=== PATIENT | male | born 1965 | race Caucasian/White ===

== ENCOUNTER → 2016-08-09 | Outpatient (CLI) | payer MEDICARE, BC | LOC: OD 16:45 | PROVIDERS: ATTEND Urology | DX: N40.0 Benign prostatic hyperplasia without lower urinary tract symptoms (principal) | CPT/HCPCS: 36415; 84153 ==

== ENCOUNTER 2016-12-12 04:24 | Emergency (ER) | payer MEDICARE, BC ==
[2016-12-12 05:14] LABS: ABSOLUTE BASOPHILS # (AUTO) 0.1 10^3/uL (0.0-0.2); ABSOLUTE EOSINOPHILS # (AUTO) 0.2 10^3/uL (0.0-0.6); ABSOLUTE LYMPHOCYTES (AUTO) 1.5 10^3/uL (0.5-4.7); ABSOLUTE MONOCYTES (AUTO) 0.5 10^3/uL (0.1-1.4); ABSOLUTE NEUT (AUTO) 3.1 10^3/uL (1.7-8.2); BASOPHILS % (AUTO) 1.6 % (0-2); EOSINOPHILS % (AUTO) 3.1 % (0-6); HEMATOCRIT 40.6 % (37.9-51.0); HEMOGLOBIN 13.6 g/dL (13.5-17.0); HGB HCT DIFFERENCE 0.2; LYMPHOCYTES % (AUTO) 27.8 % (13-45); MEAN CORPUSCULAR HEMOGLOBIN 28.1 pg (27.0-33.4); MEAN CORPUSCULAR HGB CONC 33.5 g/dL (32.0-36.0); MEAN CORPUSCULAR VOLUME 84 fl (80-97); MONOCYTES % (AUTO) 9.2 % (3-13); RED BLOOD COUNT 4.84 10^6/uL (4.35-5.55); RED CELL DISTRIBUTION WIDTH 13.3 % (11.5-14.0); SEGMENTED NEUTROPHILS % (AUTO) 58.3 % (42-78); WHITE BLOOD COUNT 5.3 10^3/uL (4.0-10.5)
[2016-12-12 05:41] LABS: ALANINE AMINOTRANSFERASE 34 U/L (21-72); ALBUMIN 3.6 g/dL (3.5-5.0); ALKALINE PHOSPHATASE 62 U/L (38-126); ANION GAP 11 (5-19); ASPARTATE AMINO TRANSFERASE 22 U/L (17-59); BILIRUBIN,DIRECT 0.3 mg/dL (0.0-0.4); BILIRUBIN,TOTAL 0.5 mg/dL (0.2-1.3); BLOOD UREA NITROGEN 7 mg/dL (7-20); CALCIUM 8.8 mg/dL (8.4-10.2); CARBON DIOXIDE 19 mmol/L (22-30); CHLORIDE 108 mmol/L (98-107); CREATINE KINASE 65 U/L (55-170); CREATININE RESULT 0.88 mg/dL (0.52-1.25); GLUCOSE 91 mg/dL (75-110); POTASSIUM 3.3 mmol/L (3.6-5.0); SODIUM 138.3 mmol/L (137-145); TOTAL PROTEIN 5.8 g/dL (6.3-8.2)
[2016-12-12 05:45] LABS: PROTHROMBIN TIME 12.6 SEC (11.4-15.4)
--- NOTE | 2016-12-12 05:49 | RADIOLOGY REPORT (SQ) ---
EXAM DESCRIPTION: CHEST SINGLE VIEW COMPLETED DATE/TIME: 12/12/2016 5:38 am REASON FOR STUDY: cp COMPARISON: 09/03/2013 EXAM PARAMETERS: NUMBER OF VIEWS: One view. TECHNIQUE: Single frontal radiographic view of the chest acquired. RADIATION DOSE: NA LIMITATIONS: None. FINDINGS: LUNGS AND PLEURA: Prominent interstitium. MEDIASTINUM AND HILAR STRUCTURES: No masses. Contour normal. HEART AND VASCULAR STRUCTURES: Heart normal in size. Normal vasculature. BONES: No acute findings. HARDWARE: Lower cervical hardware partially imaged. OTHER: No other significant finding. IMPRESSION: NO ACUTE RADIOGRAPHIC FINDING IN THE CHEST. TECHNICAL DOCUMENTATION: JOB ID: [id number]
[2016-12-12 06:03] LABS: CREATINE KINASE MB 0.56 ng/mL (<4.55)
[2016-12-12 06:04] LABS: TROPONIN I < 0.012 ng/mL
[2016-12-12 07:31] LABS: THYROID STIMULATING HORMONE 6.48 uIU/mL (0.47-4.68)
[2016-12-12] MEDS ORDERED: POTASSIUM CHLORIDE 10 MEQ TABLET.SA PO ONE (08:56)
[2016-12-12 09:30] LABS: APPEARANCE,URINE CLEAR; BILIRUBIN,URINE NEGATIVE (NEGATIVE); GLUCOSE, URINE NEGATIVE (NEGATIVE); KETONES,URINE NEGATIVE (NEGATIVE); LEUKOCYTE ESTERASE,URINE NEGATIVE (NEGATIVE); NITRITE,URINE NEGATIVE (NEGATIVE); PROTEIN,URINE NEGATIVE (NEGATIVE); URINE SPECIFIC GRAVITY 1.003; UROBILINOGEN,URINE NEGATIVE mg/dL (<2.0)
[2016-12-12 09:45] LABS: URINE BARBITURATES SCREEN NEGATIVE; URINE METHADONE SCREEN NEGATIVE; URINE OPIATES LOW NEGATIVE; URINE PHENCYCLIDINE SCREEN NEGATIVE
--- NOTE | 2016-12-12 10:19 | EKG REPORT ---
SEVERITY:- ABNORMAL ECG - SINUS RHYTHM NONSPECIFIC INTRAVENTRICULAR CONDUCTION DELAY : Confirmed by: Kris Trinh MD 12-Dec-2016 10:18:27
--- NOTE | 2016-12-12 11:03 | ER Document Report ---
ED General - General Chief Complaint: Chest Pain Stated Complaint: PALPITATIONS Time Seen by Provider: 12/12/16 06:44 TRAVEL OUTSIDE OF THE [place] IN LAST 30 DAYS: No - HPI Patient complains to provider of: Palpitations Notes: Patient with history of atrial fibrillation on flecainide and metoprolol coming in for palpitations. 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 Patient denies any other chest pain abdominal pain headaches fevers chills nausea vomiting denies any recent travel. Patient denies any shortness of breath. Current at this time patient is seen in a normal sinus rhythm on the monitor patient states palpitations have resolved - Related Data Allergies/Adverse Reactions: topiramate [From Topamax] Allergy (Severe, Verified 09/03/13 15:10) shock apixaban [From Eliquis] Allergy (Verified 10/20/15 15:20) Past Medical History - Social History Smoking Status: Unknown if Ever Smoked Drug Abuse: None Family History: Reviewed & Not Pertinent - Past Medical History Cardiac Medical History: Reports: Hx Atrial Fibrillation, Hx Coronary Artery Disease, Hx Hypertension Denies: Hx Heart Attack Pulmonary Medical History: Reports: Hx Asthma, Hx Pneumonia Denies: Hx Bronchitis, Hx COPD, Hx Tuberculosis Neurological Medical History: Denies: Hx Cerebrovascular Accident, Hx Seizures Renal/ Medical History: Reports: Hx Benign Prostatic Hyperplasia Malignancy Medical History: Reports Hx Skin Cancer GI Medical History: Reports: Hx Gastroesophageal Reflux Disease Musculoskeltal Medical History: Reports Hx Arthritis, Reports Hx Musculoskeletal Trauma Psychiatric Medical History: Reports: Hx Anxiety, Hx Depression Traumatic Medical History: Reports: Hx Spine Fracture Past Surgical History: Reports: Hx Cardiac Surgery - ablation x3, Hx Inguinal Hernia, Hx Orthopedic Surgery - cervical neck surgury. Denies: Hx Pacemaker - Immunizations Immunizations up to date: Yes Hx Diphtheria, Pertussis, Tetanus Vaccination: No - Last tetanus 15 yr ago Hx Pneumococcal Vaccination: 06/11/03 Review of Systems - Review of Systems Constitutional: No symptoms reported EENT: No symptoms reported Cardiovascular: Palpitations Respiratory: No symptoms reported Gastrointestinal: No symptoms reported Genitourinary: No symptoms reported Male Genitourinary: No symptoms reported Musculoskeletal: No symptoms reported Skin: No symptoms reported Hematologic/Lymphatic: No symptoms reported Neurological/Psychological: No symptoms reported -: Yes All other systems reviewed and negative Physical Exam - Vital signs Vitals: Resp Pulse Ox 11 L 100 12/12/16 04:49 12/12/16 04:49 Interpretation: Normal - General General appearance: Appears well, Alert - HEENT Head: Normocephalic, Atraumatic Eyes: Normal Pupils: PERRL - Respiratory Respiratory status: No respiratory distress Chest status: Nontender Breath sounds: Normal Chest palpation: Normal - Cardiovascular Rhythm: Regular Heart sounds: Normal auscultation Murmur: No - Abdominal Inspection: Normal Distension: No distension Bowel sounds: Normal Tenderness: Nontender Organomegaly: No organomegaly - Back Back: Normal, Nontender - Extremities General upper extremity: Normal inspection, Nontender, Normal color, Normal ROM , Normal temperature General lower extremity: Normal inspection, Nontender, Normal color, Normal ROM , Normal temperature, Normal weight bearing. No: Ander's sign - Neurological Neuro grossly intact: Yes Cognition: Normal Orientation: AAOx4 [place] Coma Scale Eye Opening: Spontaneous Lillian Coma Scale Verbal: Oriented Lillian Coma Scale Motor: Obeys Commands [place] Coma Scale Total: 15 Speech: Normal Motor strength normal: LUE, RUE, LLE, RLE Sensory: Normal - Psychological Associated symptoms: Normal affect, Normal mood - Skin Skin Temperature: Warm Skin Moisture: Dry Skin Color: Normal Course - Re-evaluation Re-evalutation: 12/12/16 14:09 The patient has palpitations as the patient's chest pain is not suggestive of pulmonary embolus, cardiac ischemia, aortic dissection, or other serious etiology. Given the extremely low risk of these diagnoses further testing and evaluation for these possibilities does not appear to be indicated at this time. The patient has been instructed to return if the symptoms worsen or change in any way. Patient was made aware of his slight elevation of TSH. Patient is encouraged follow-up primary care physician for further evaluation observation 12/12/16 14:10 - Vital Signs Vital signs: Temp Pulse Resp BP Pulse Ox 93 14 130/90 H 96 12/12/16 05:12 12/12/16 11:00 12/12/16 11:00 12/12/16 11:00 - Laboratory Result Diagrams: 12/12/16 05:01 07/04/17 05:01 Laboratory results interpreted by me: 12/12/16 12/12/16 05:01 05:01 Potassium 3.3 L Chloride 108 H Carbon Dioxide 19 L Total Protein 5.8 L TSH 6.48 H Discharge - Discharge Clinical Impression: Palpitations, TSH (thyroid-stimulating hormone deficiency) Condition: Good Disposition: HOME, SELF-CARE Instructions: Palpitations (Irregular or Rapid Heartrate) ([facility]), Thyroid Hormone ([facility]) Additional Instructions: Your laboratory studies do not show any significant pathology at this time. He did have a very mild elevation in your TSH and I will discuss with your primary care physician. Return to the ER if symptoms worsen. Also follow-up with your cracker off. Continue home medications as prescribed. Referrals: SREE HARLEY MD [Primary Care Provider] - Follow up as needed
[2016-12-12 11:32] VITALS: BP 130/90
== END 2016-12-12 11:10 | disposition home or self-care (01) ==
LOC: ER 04:24
DX: R00.2 Palpitations (principal); E03.9 Hypothyroidism, unspecified; I48.91 Unspecified atrial fibrillation; Z79.899 Other long term (current) drug therapy; I25.10 Atherosclerotic heart disease of native coronary artery without angina pectoris; I10 Essential (primary) hypertension; J45.909 Unspecified asthma, uncomplicated; Z85.828 Personal history of other malignant neoplasm of skin; Z98.890 Other specified postprocedural states; Z88.8 Allergy status to other drugs, medicaments and biological substances; Z88.6 Allergy status to analgesic agent
CPT/HCPCS: 93005; 99285; 36415; 84439; 82553; 82550; 83735; 84443; 85025; 85610; 85730; 80053; 81001; 84484; 80307; 71010; 93010; A9270

== ENCOUNTER 2017-06-01 13:44 | Emergency (ER) | payer MEDICARE, BC ==
[2017-06-01] MEDS ORDERED: TETRACAINE HCL 0.5% OPH SOLN 2 ML OD ONE (14:22)
--- NOTE | 2017-06-01 14:47 | ER Document Report ---
ED Medical Screen (RME) - General Mode of Arrival: Ambulatory Information source: Patient TRAVEL OUTSIDE OF THE [place] IN LAST 30 DAYS: No - General Chief Complaint: Headache Stated Complaint: HEADACHE Time Seen by Provider: 06/01/17 14:16 Notes: Patient is a 51 year old male with a history of Afib and asthma presents to the emergency department complaining of a sinus headache onset a week ago. Patient states the pain is exacerbated when he moves around is eyes. Patient states that he had momentary blurry vision that lasted for a day. Patient also complains of congestion. Patient denies photophobia, head trauma, neck pain, or fevers. I have greeted and performed a rapid initial assessment of this patient. A comprehensive ED assessment and evaluation of the patient, analysis of test results and completion of the medical decision making process will be conducted by additional ED providers. (ROSA MARIA GALAN) - Related Data Allergies/Adverse Reactions: topiramate [From Topamax] Allergy (Severe, Verified 09/03/13 15:10) shock apixaban [From Eliquis] Allergy (Verified 10/20/15 15:20) coconut Allergy (Verified 06/01/17 13:44) Past Medical History - Social History Chew tobacco use (# tins/day): No Frequency of alcohol use: None Drug Abuse: None - Past Medical History Cardiac Medical History: Reports: Hx Atrial Fibrillation, Hx Coronary Artery Disease, Hx Hypertension Denies: Hx Heart Attack Pulmonary Medical History: Reports: Hx Asthma, Hx Pneumonia Denies: Hx Bronchitis, Hx COPD, Hx Tuberculosis Neurological Medical History: Denies: Hx Cerebrovascular Accident, Hx Seizures Renal/ Medical History: Reports: Hx Benign Prostatic Hyperplasia. Denies: Hx Peritoneal Dialysis Malignancy Medical History: Reports Hx Skin Cancer GI Medical History: Reports: Hx Gastroesophageal Reflux Disease Musculoskeltal Medical History: Reports Hx Arthritis, Reports Hx Musculoskeletal Trauma Psychiatric Medical History: Reports: Hx Anxiety, Hx Depression Traumatic Medical History: Reports: Hx Spine Fracture Past Surgical History: Reports: Hx Cardiac Surgery - ablation x3, Hx Inguinal Hernia, Hx Orthopedic Surgery - cervical neck surgury. Denies: Hx Pacemaker - Immunizations Immunizations up to date: Yes Hx Diphtheria, Pertussis, Tetanus Vaccination: No - Last tetanus 15 yr ago Physical Exam - Vital signs Vitals: Temp Pulse Resp BP Pulse Ox 97.8 F 69 16 137/85 H 100 06/01/17 13:54 06/01/17 13:54 06/01/17 13:54 06/01/17 13:54 06/01/17 13:54 - Notes Notes: GENERAL: Alert, interacts well. No acute distress. EENT: Clear rhinorrhea in right nostril. Small amount of post nasal drip. Not tender to percussion on frontal or maxillary sinus. Pain with extraocular movements. LUNGS: Clear to auscultation bilaterally, no wheezes, rales, or rhonchi. No respiratory distress. HEART: Regular rate and rhythm. No murmurs, gallops, or rubs. ABDOMEN: Soft, non-tender. Non-distended. Bowel sounds present in all 4 quadrants. (ROSA MARIA GALAN) - Vital Signs Vital signs: Temp Pulse Resp BP Pulse Ox 97.8 F 69 16 137/85 H 100 06/01/17 13:54 06/01/17 13:54 06/01/17 13:54 06/01/17 13:54 06/01/17 13:54 Scribe Documentation - Scribe Written by Scribe:: Cesar Rothman, 06/01/2017 14:53 acting as scribe for :: Milvia
--- NOTE | 2017-06-01 15:41 | ER Document Report ---
ED Headache - General Chief Complaint: Headache Stated Complaint: HEADACHE Time Seen by Provider: 06/01/17 14:16 Mode of Arrival: Ambulatory Information source: Patient Notes: 51 yo non smoker male hx chronic sinusitis, AFib, (3 ablations-currently resolved), asthma, allergies, 2005 neck injury) c/o 5/5 right frontal for 7 days, worse with nasal saline rinse (hx chronic sinusitis) thlenol and ibuprofen dull it, associated with post nasal drip, burning in sinus after the saline (for 3 hours in [place] area). Occasional nausea. No fever. The headache started 7 days ago with gradual onset pressure Right frontal 3/5. Hx mirgraine , not for a long time. TRAVEL OUTSIDE OF THE [place] IN LAST 30 DAYS: No - Related Data Allergies/Adverse Reactions: topiramate [From Topamax] Allergy (Severe, Verified 09/03/13 15:10) shock apixaban [From Eliquis] Allergy (Verified 10/20/15 15:20) coconut Allergy (Verified 06/01/17 13:44) Past Medical History - General Information source: Patient - Social History Smoking Status: Never Smoker Chew tobacco use (# tins/day): No Frequency of alcohol use: None Drug Abuse: None Family History: Reviewed & Not Pertinent Patient has suicidal ideation: No Patient has homicidal ideation: No - Past Medical History Cardiac Medical History: Reports: Hx Atrial Fibrillation, Hx Coronary Artery Disease, Hx Hypertension Pulmonary Medical History: Reports: Hx Asthma, Hx Pneumonia Neurological Medical History: Reports: Hx Migraine Renal/ Medical History: Reports: Hx Benign Prostatic Hyperplasia Malignancy Medical History: Reports Hx Skin Cancer GI Medical History: Reports: Hx Gastroesophageal Reflux Disease Musculoskeltal Medical History: Reports Hx Arthritis, Reports Hx Musculoskeletal Trauma Psychiatric Medical History: Reports: Hx Anxiety, Hx Depression Traumatic Medical History: Reports: Hx Spine Fracture Past Surgical History: Reports: Hx Cardiac Surgery - ablation x3, Hx Inguinal Hernia, Hx Orthopedic Surgery - cervical neck surgury. Denies: Hx Pacemaker - Immunizations Immunizations up to date: Yes Hx Diphtheria, Pertussis, Tetanus Vaccination: No - Last tetanus 15 yr ago Hx Pneumococcal Vaccination: 06/11/03 Review of Systems - Review of Systems Constitutional: No symptoms reported EENT: See HPI Cardiovascular: No symptoms reported Respiratory: No symptoms reported Gastrointestinal: No symptoms reported Genitourinary: No symptoms reported Male Genitourinary: No symptoms reported Musculoskeletal: No symptoms reported Skin: No symptoms reported Hematologic/Lymphatic: No symptoms reported Neurological/Psychological: See HPI Physical Exam - Vital signs Vitals: Temp Pulse Resp BP Pulse Ox 97.8 F 69 16 137/85 H 100 06/01/17 13:54 06/01/17 13:54 06/01/17 13:54 06/01/17 13:54 06/01/17 13:54 Interpretation: Normal - General General appearance: Appears well, Alert - HEENT Head: Normocephalic, Atraumatic Eyes: Normal Conjunctiva: Normal Pupils: PERRL Visual acuity- Right eye: 20-40 Visual acuity- Left eye: 20-40 Corrective lenses worn: No - usually wears glasses Right intraocular pressure: 13.95 Left intraocular pressure: 10.9 Nerve palsy: No Visual joshua normal: Yes - Respiratory Respiratory status: No respiratory distress Chest status: Nontender Breath sounds: Normal Chest palpation: Normal - Cardiovascular Rhythm: Regular Heart sounds: Normal auscultation Murmur: No - Abdominal Inspection: Normal Distension: No distension Bowel sounds: Normal Tenderness: Nontender Organomegaly: No organomegaly - Back Back: Normal, Nontender - Extremities General upper extremity: Normal inspection, Nontender, Normal color, Normal ROM , Normal temperature General lower extremity: Normal inspection, Nontender, Normal color, Normal ROM , Normal temperature, Normal weight bearing. No: Ander's sign - Neurological Neuro grossly intact: Yes Cognition: Normal Orientation: AAOx4 Lillian Coma Scale Eye Opening: Spontaneous Mentcle Coma Scale Verbal: Oriented Mentcle Coma Scale Motor: Obeys Commands Lillian Coma Scale Total: 15 Speech: Normal Motor strength normal: LUE, RUE, LLE, RLE Sensory: Normal - Psychological Associated symptoms: Normal affect, Normal mood - Skin Skin Temperature: Warm Skin Moisture: Dry Skin Color: Normal Course - Re-evaluation Re-evalutation: 06/01/17 18:20 CT is negative for brain and sinuses. Headache level is 1/5. 06/01/17 18:34 Robert-Pen used for IOP is the right is 13.95 left is 10.9 will refer to neurologist. No eye pain at this time. - Vital Signs Vital signs: Temp Pulse Resp BP Pulse Ox 98.3 F 69 16 132/80 H 97 06/01/17 18:36 06/01/17 18:36 06/01/17 18:36 06/01/17 18:36 06/01/17 18:36 Discharge - Discharge Clinical Impression: right frontal headache Condition: Good Disposition: HOME, SELF-CARE Instructions: Intravenous Compazine for Headaches ([facility]), Use of Diphenhydramine , Headache ([facility]), Toradol Injection ([facility]) Additional Instructions: see neurologist for the headache, since you have hx migraine to er if worse Referrals: SREE HARLEY MD [Primary Care Provider] - Follow up as needed MAI COSTA MD [ACTIVE STAFF] - Follow up as needed
[2017-06-01] MEDS ORDERED: DIPHENHYDRAMINE HCL 50 MG/ML VIAL IV ONE (16:41)
[2017-06-01] MEDS ORDERED: PROCHLORPERAZINE EDISYLATE INJ 10 MG/2 ML VIAL IV ONE (16:41)
--- NOTE | 2017-06-01 17:26 | RADIOLOGY REPORT (SQ) ---
EXAM DESCRIPTION: CT HEAD WITHOUT COMPLETED DATE/TIME: 06/01/2017 5:10 pm REASON FOR STUDY: right frontal headache COMPARISON: 06/28/2015 TECHNIQUE: Axial images acquired through the brain without intravenous contrast. Images reviewed wi th bone, brain and subdural windows. Images stored on PACS. All CT scanners at this facility use dose modulation, iterative reconstruction, and/or weight based d osing when appropriate to reduce radiation dose to as low as reasonably achievable (ALARA). [facility]: Dose Right [facility]: CareDose [facility]: Dose Right [facility]: Teradose 4D [facility]: Smart Phytel RADIATION DOSE: CT Rad equipment meets quality standard of care and radiation dose reduction techniq ues were employed. CTDIvol: 64.6 mGy. DLP: 1163 mGy-cm. mGy. LIMITATIONS: None. FINDINGS: VENTRICLES: Normal size and contour. CEREBRUM: No masses. No hemorrhage. No midline shift. No evidence for acute infarction. Normal gra y/white matter differentiation. No areas of low density in the white matter. CEREBELLUM: No masses. No hemorrhage. No alteration of density. No evidence for acute infarction. EXTRAAXIAL SPACES: No fluid collections. No masses. ORBITS AND GLOBE: No intra- or extraconal masses. Normal contour of globe without masses. CALVARIUM: No fracture. PARANASAL SINUSES: No fluid or mucosal thickening. SOFT TISSUES: No mass or hematoma. OTHER: No other significant finding. IMPRESSION: No acute intracranial findings. EVIDENCE OF ACUTE STROKE: NO. COMMENT: Quality ID # [id number]: Final reports with documentation of one or more dose reduction techniques (e.g., Automated exposure control, adjustment of the mA and/or kV according to patient size, use of iterative reconstruction technique) TECHNICAL DOCUMENTATION: JOB ID: [id number] [place]-72 2010 [id number]- All Rights Reserved
[2017-06-01] MEDS ORDERED: KETOROLAC TROMETHAMINE INJ/PF 30 MG/1 ML SDV IV ONE (18:34)
[2017-06-01 18:37] VITALS: BP 132/80
== END 2017-06-01 18:43 | disposition home or self-care (01) ==
LOC: ER 13:44
DX: R51 Headache (principal); J32.9 Chronic sinusitis, unspecified; I48.91 Unspecified atrial fibrillation
CPT/HCPCS: 99284; 96374; 96375; 70450; J1200; J1885; J0780

== ENCOUNTER → 2017-08-10 | Outpatient (CLI) | payer MEDICARE, BC | LOC: OD 16:52 | PROVIDERS: ATTEND Urology | DX: N40.0 Benign prostatic hyperplasia without lower urinary tract symptoms (principal) | CPT/HCPCS: 36415; 84153 ==

== ENCOUNTER 2018-05-06 16:10 | Inpatient (IN) | payer MEDICARE, BC ==
[2018-05-06] MEDS ORDERED: HYDROMORPHONE HCL INJ/PF 2 MG/ML AMPULE IV PRN (16:50)
[2018-05-06 17:25] LABS: HEMATOCRIT 42.2 % (37.9-51.0); HEMOGLOBIN 14.4 g/dL (13.5-17.0); MEAN CORPUSCULAR HEMOGLOBIN 27.3 pg (27.0-33.4); MEAN CORPUSCULAR HGB CONC 34.1 g/dL (32.0-36.0); MEAN CORPUSCULAR VOLUME 80 fl (80-97); PLATELET COUNT 214 10^3/uL (150-450); RED BLOOD COUNT 5.28 10^6/uL (4.35-5.55); RED CELL DISTRIBUTION WIDTH 13.9 % (11.5-14.0); WHITE BLOOD COUNT 13.2 10^3/uL (4.0-10.5)
[2018-05-06] MEDS: NORMAL SALINE 1000 ML 1,000 ML IV PRN (17:37)
[2018-05-06 17:43] LABS: ALANINE AMINOTRANSFERASE 31 U/L (21-72); ALBUMIN 4.4 g/dL (3.5-5.0); ALKALINE PHOSPHATASE 74 U/L (38-126); ANION GAP 13 (5-19); ASPARTATE AMINO TRANSFERASE 24 U/L (17-59); BILIRUBIN,DIRECT 0.2 mg/dL (0.0-0.4); BILIRUBIN,TOTAL 0.8 mg/dL (0.2-1.3); BLOOD UREA NITROGEN 14 mg/dL (7-20); CALCIUM 9.6 mg/dL (8.4-10.2); CARBON DIOXIDE 25 mmol/L (22-30); CHLORIDE 99 mmol/L (98-107); GLUCOSE 95 mg/dL (75-110); POTASSIUM 3.9 mmol/L (3.6-5.0); SODIUM 137.3 mmol/L (137-145); TOTAL PROTEIN 6.7 g/dL (6.3-8.2)
[2018-05-06] MEDS ORDERED: BUPIVACAINE HCL 0.5 % INJ/PF 30 ML SDV ONE (20:47)
[2018-05-06] MEDS ORDERED: ACETAMINOPHEN 1,000 MG/100 ML RTUPB IV ONE (21:06)
[2018-05-06] MEDS ORDERED: PROPOFOL INJ 200 MG/20 ML VIAL IV ONE (21:06)
[2018-05-06] MEDS ORDERED: HYDROMORPHONE HCL INJ/PF 2 MG/ML AMPULE ONE (21:06)
[2018-05-06] MEDS ORDERED: MIDAZOLAM 2 MG/2 ML INJ ONE (21:06)
--- NOTE | 2018-05-06 21:09 | PDOC H&P ---
History of Present Illness Admission Date/PCP: 05/06/18 16:10 TACOS YBARRA MD History of Present Illness: JEROD FRIAS is a 52 year old male,He came to the office today for evaluation of acute onset right lower quadrant abdominal pain, there is associated nausea, novomiting no diarrhea no urinary symptoms. In the office he was evaluated on examination there is tenderness in the right lower quadrant, there was point and rebound tenderness at McBurney's point suggesting acute appendicitis. He was admitted directly from the office into the hospital for further evaluation, a CAT scan of the abdomen and pelvis with contrast was obtained and also consultation from surgery was obtained. There is associated leukocytosis.Patient was seen by the surgeon the presentation is very consistent with acute appendicitis, he was taken to the operative room, the results of the CT scan of the abdomen and pelvis came back suggesting that the appendix was unremarkable, the CAT scan demonstrated very marked thickening of a short segment of the ascending colon suspicious for inflammatory or infectious colitis Past Medical History Cardiac Medical History: Reports: Atrial Fibrillation, Coronary Artery Disease, Hypertension Pulmonary Medical History: Reports: Asthma, Pneumonia Neurological Medical History: Reports: Migraine Malignancy Medical History: Reports: Skin Cancer GI Medical History: Reports: Gastroesophageal Reflux Disease Musculoskeltal Medical History: Reports: Arthritis Psychiatric Medical History: Reports: Depression Past Surgical History Past Surgical History: Reports: Orthopedic Surgery - cervical neck surgury Social History Smoking Status: Never Smoker Frequency of Alcohol Use: None Hx Recreational Drug Use: No Hx Prescription Drug Abuse: No Family History Family History: Reviewed & Not Pertinent Parental Family History Reviewed: Yes Children Family History Reviewed: Yes Sibling(s) Family History Reviewed.: Yes Medication/Allergy Home Medications: Albuterol Sulfate [Proair HFA Inhalation Aerosol 8.5 gm MDI] 1 puff IH Q4HP PRN 05/07/18 Aspirin [Aspirin 325 mg Tablet] 325 mg PO DAILY 05/07/18 Atorvastatin Calcium [Lipitor 40 mg Tablet] 40 mg PO DAILY 05/07/18 Bupropion HCl [Wellbutrin Sr 150 mg Tablet] 150 mg PO BID 05/07/18 Buspirone HCl [Buspar 10 mg Tablet] 10 mg PO DAILY 05/07/18 Cholecalciferol (Vitamin D3) [Vitamin D3 2000 unit Tablet] 2,000 unit PO DAILY 05/07/18 Clonazepam [Klonopin] 0.5 mg PO BIDP PRN 05/07/18 Dexlansoprazole [Dexilant 60 mg Capsule] 60 mg PO QAM 05/07/18 Docusate Sodium [Colace 100 mg Capsule] 100 mg PO BID@1200,1800 05/07/18 Docusate Sodium [Colace 100 mg Capsule] 200 mg PO QAM 05/07/18 Flecainide Acetate 75 mg PO BID 05/07/18 Fluoxetine HCl [Prozac] 40 mg PO DAILY 05/07/18 Lactulose [Cephulac Syrup 20 gm/30 ml Udcup] 20 gm PO DAILY 05/07/18 Losartan Potassium [Cozaar 100 mg Tablet] 100 mg PO QAM 05/07/18 Metoprolol Succinate [Toprol XL 100 mg Tablet] 100 mg PO QAM 05/07/18 Multivit-Min/Folic/Vit K/Lycop [One-A-Day Men's 50 Plus Tablet] 1 tab PO DAILY 05/07/18 [place]-3 Fatty Acids/Fish Oil [Fish Oil 1,000 mg Capsule] 2 cap PO DAILY Tamsulosin HCl [Flomax 0.4 mg Cap.sr] 0.4 mg PO BID 05/07/18 Temazepam [Restoril] 30 mg PO QHS 05/07/18 Vitamin E 400 mg PO DAILY 05/07/18 Allergies/Adverse Reactions: topiramate [From Topamax] Allergy (Severe, Verified 09/03/13 15:10) shock apixaban [From Eliquis] Allergy (Verified 10/20/15 15:20) coconut Allergy (Verified 06/01/17 13:44) Review of Systems Constitutional: ABSENT: chills, fever(s), headache(s), weight gain, weight loss Eyes: ABSENT: visual disturbances Ears: ABSENT: hearing changes Cardiovascular: ABSENT: chest pain, dyspnea on exertion, edema, orthropnea, palpitations Respiratory: ABSENT: cough, hemoptysis Gastrointestinal: PRESENT: abdominal pain, nausea, vomiting Genitourinary: ABSENT: dysuria, hematuria Musculoskeletal: ABSENT: joint swelling Integumentary: ABSENT: rash, wounds Neurological: ABSENT: abnormal gait, abnormal speech, confusion, dizziness, focal weakness, syncope Psychiatric: ABSENT: anxiety, depression, homidical ideation, suicidal ideation Endocrine: ABSENT: cold intolerance, heat intolerance, menstrual abnormalities, polydipsia, polyuria Hematologic/Lymphatic: ABSENT: easy bleeding, easy bruising, lymphadenopathy Physical Exam Vital Signs: Temp Pulse Resp BP Pulse Ox 98.4 F 78 18 136/78 H 100 05/06/18 16:58 05/06/18 16:58 05/06/18 16:58 05/06/18 16:58 05/06/18 16:58 Intake & Output 05/05/18 05/06/18 05/07/18 06:59 06:59 06:59 Weight 90.718 kg General appearance: PRESENT: no acute distress, well-developed, well-nourished Head exam: PRESENT: atraumatic, normocephalic Eye exam: PRESENT: conjunctiva pink, EOMI, PERRLA. ABSENT: scleral icterus Ear exam: PRESENT: normal external ear exam Mouth exam: PRESENT: moist, tongue midline Neck exam: PRESENT: full ROM Respiratory exam: PRESENT: clear to auscultation lexii Cardiovascular exam: PRESENT: +S1, +S2 Pulses: ABSENT: normal carotid pulses, normal radial pulses, normal femoral pulses, normal dorsalis pedis pul, +1 pedal pulses bilateral, +2 pedal pulses bilateral, other Vascular exam: PRESENT: normal capillary refill GI/Abdominal exam: PRESENT: normal bowel sounds, tenderness - There is tenderness in the right lower quadrant Rectal exam: PRESENT: deferred Neurological exam: PRESENT: alert, awake, oriented to person, oriented to place , oriented to time, oriented to situation, CN II-XII grossly intact Psychiatric exam: PRESENT: appropriate affect, normal mood Skin exam: PRESENT: dry, intact, warm Results Laboratory Results: 05/06/18 17:08 05/06/18 17:08 05/06/18 05/06/18 17:08 17:08 WBC 13.2 H RBC 5.28 Hgb 14.4 Hct 42.2 MCV 80 MCH 27.3 MCHC 34.1 RDW 13.9 Plt Count 214 Sodium 137.3 Potassium 3.9 Chloride 99 Carbon Dioxide 25 Anion Gap 13 BUN 14 Creatinine 0.94 Est GFR ( Amer) > 60 Est GFR (Non-Af Amer) > 60 Glucose 95 Calcium 9.6 Total Bilirubin 0.8 AST 24 ALT 31 Alkaline Phosphatase 74 Total Protein 6.7 Albumin 4.4 Assessment & Plan - Diagnosis (1) Right lower quadrant abdominal pain Is this a current diagnosis for this admission?: Yes Plan: The CAT scan of the abdomen and pelvis demonstrated marked wall thickening in a short segment of the ascending colon which could represent infectious or inflammatory colitis the appendix was normal (2) Infectious colitis Is this a current diagnosis for this admission?: Yes Plan: He probably have infectious colitis, treat empirically with Flagyl and Cipro
[2018-05-06 21:21] LABS: APPEARANCE,URINE SLIGHTLY-CLOUDY; BILIRUBIN,URINE NEGATIVE (NEGATIVE); COLOR,URINE YELLOW; GLUCOSE, URINE NEGATIVE (NEGATIVE); KETONES,URINE NEGATIVE (NEGATIVE); LEUKOCYTE ESTERASE,URINE NEGATIVE (NEGATIVE); NITRITE,URINE NEGATIVE (NEGATIVE); PROTEIN,URINE NEGATIVE (NEGATIVE); URINE SPECIFIC GRAVITY 1.023; UROBILINOGEN,URINE NEGATIVE mg/dL (<2.0)
--- NOTE | 2018-05-06 21:38 | RADIOLOGY REPORT (SQ) ---
EXAM DESCRIPTION: CLINICAL HISTORY: 52 years Male right lower quadrant pain COMPARISON: 10/20/2015. TECHNIQUE: Contiguous axial images obtained through the abdomen and pelvis without IV contrast. Reformatted images obtained. This exam was performed according to our department optimization program which includes automated exposure control, adjustment of the mA and/or kv according to patient size and/or use of iterative reconstruction technique. FINDINGS: The lung bases are clear. The liver appears unremarkable. The spleen and pancreas appear unremarkable. No adrenal masses. The kidneys appear unremarkable. No hydronephrosis or definite ureteral calculi. There is a tiny nodular focus along the retroperitoneum on the right measuring 9 mm which may reflect small lymph node. The gallbladder is visualized. No aneurysmal dilatation of the aorta. No bowel obstruction. Unremarkable appendix. There is marked wall thickening in a short segment of ascending colon which may reflect infectious or inflammatory colitis with a small amount of adjacent stranding and tiny lymph nodes. The possibility of mass is thought less likely. Recommend follow-up to document resolution No free pelvic fluid. IMPRESSION: Marked wall thickening in a short segment of ascending colon concerning for colitis. Changes May BE infectious or inflammatory. Possibility of mass is thought less likely. Recommend follow-up to document resolution and clinical correlation Small amount of mesenteric adenopathy which may be reactive Tiny nodular focus in the right retroperitoneum which was present on the previous study and appears stable
[2018-05-06] MEDS: HYDROMORPHONE HCL INJ/PF 2 MG/ML AMPULE IV PRN (22:10)
--- NOTE | 2018-05-06 22:10 | PDOC CONSULTATION ---
Consultation Consult Date: 05/06/18 Consult reason:: RLQ pains History of Present Illness Admission Date/PCP: 05/06/18 16:10 TACOS YBARRA MD History of Present Illness: JEROD FRIAS is a 52 year old male who suddenly c/o periumbilical pains at 8 pm last night. Pains localized to the RLQ today and associated with nausea. Denies fever or chills, diarrhea nor constipation. Claims he is on po antibiotics for prostatitis. Past Medical History Cardiac Medical History: Reports: Atrial Fibrillation, Coronary Artery Disease, Hypertension Denies: Myocardial Infarction Pulmonary Medical History: Reports: Asthma, Pneumonia Denies: Bronchitis, Chronic Obstructive Pulmonary Disease (COPD), Tuberculosis Neurological Medical History: Reports: Migraine Denies: Seizures Malignancy Medical History: Reports: Skin Cancer GI Medical History: Reports: Gastroesophageal Reflux Disease Musculoskeltal Medical History: Reports: Arthritis Psychiatric Medical History: Reports: Depression Hematology: Denies: Anemia Past Surgical History Past Surgical History: Reports: Orthopedic Surgery - cervical neck surgury, Other - cardiac ablation for A Fib x 3. Last one converted to Normal sinus rhythm. Denies: Pacemaker Social History Smoking Status: Never Smoker Frequency of Alcohol Use: None Hx Recreational Drug Use: No Hx Prescription Drug Abuse: No Family History Family History: Reviewed & Not Pertinent Parental Family History Reviewed: Yes Children Family History Reviewed: No Sibling(s) Family History Reviewed.: No Medication/Allergy Home Medications: Flecainide Acetate 75 mg PO BID 06/08/11 Flomax 0.4 mg Cap.sr 0.8 mg PO DAILY 06/08/11 Toprol Xl 100 mg PO DAILY 06/08/11 Wellbutrin Sr 150 mg PO BID 06/08/11 Atorvastatin Calcium [Lipitor 40 mg Tablet] 40 mg PO QHS 03/08/12 Multivitamin [Multi-Vitamin Daily] 1 each PO DAILY 09/22/12 [place]-3 Fatty Acids/Fish Oil [Fish Oil 1,000 mg Capsule] 2 each PO DAILY Docusate Sodium [Colace 100 mg Capsule] 100 mg PO BID 09/04/13 Lactulose 30 ml PO DAILY 09/04/13 Temazepam [Restoril] 30 mg PO QHS PRN 09/04/13 Losartan Potassium [Cozaar 100 mg Tablet] 1 tab PO DAILY 06/01/14 Finasteride 5 mg PO DAILY 10/02/15 Omeprazole 40 mg PO BID 10/02/15 Baclofen 1 tab PO TID PRN 10/20/15 Fluoxetine HCl [Prozac] 40 mg PO DAILY 10/20/15 Oxycodone HCl/Acetaminophen [Primlev 10-300 mg Tablet] 1 each PO TID PRN Allergies/Adverse Reactions: topiramate [From Topamax] Allergy (Severe, Verified 09/03/13 15:10) shock apixaban [From Eliquis] Allergy (Verified 10/20/15 15:20) coconut Allergy (Verified 06/01/17 13:44) Review of Systems Constitutional: PRESENT: as per HPI Ears: PRESENT: other - no visual/hearing changes Cardiovascular: PRESENT: other - no chest pains/cough Gastrointestinal: PRESENT: abdominal pain, nausea Genitourinary: PRESENT: other - no dysuria Neurological: PRESENT: other - no seizures Hematologic/Lymphatic: PRESENT: other - no easy bruising Physical Exam Vital Signs: Temp Pulse Resp BP Pulse Ox 97.8 F 71 18 111/72 97 05/06/18 20:37 05/06/18 20:37 05/06/18 20:37 05/06/18 20:37 05/06/18 20:37 Intake & Output 05/05/18 05/06/18 05/07/18 06:59 06:59 06:59 Weight 90.718 kg General appearance: PRESENT: mild distress Head exam: PRESENT: atraumatic Eye exam: PRESENT: conjunctiva pink Mouth exam: PRESENT: moist Neck exam: PRESENT: full ROM Respiratory exam: PRESENT: clear to auscultation lexii Cardiovascular exam: PRESENT: RRR Pulses: PRESENT: normal radial pulses Vascular exam: PRESENT: normal capillary refill GI/Abdominal exam: PRESENT: soft, tenderness - RLQ Rectal exam: PRESENT: deferred Extremities exam: PRESENT: full ROM Musculoskeletal exam: PRESENT: ambulatory Neurological exam: PRESENT: alert, oriented to person, oriented to place, oriented to time, oriented to situation Psychiatric exam: PRESENT: appropriate affect Skin exam: PRESENT: normal color, warm Results Laboratory Results: 05/06/18 17:08 05/06/18 17:08 05/06/18 05/06/18 05/06/18 17:08 17:08 20:22 WBC 13.2 H RBC 5.28 Hgb 14.4 Hct 42.2 MCV 80 MCH 27.3 MCHC 34.1 RDW 13.9 Plt Count 214 Sodium 137.3 Potassium 3.9 Chloride 99 Carbon Dioxide 25 Anion Gap 13 BUN 14 Creatinine 0.94 Est GFR ( Amer) > 60 Est GFR (Non-Af Amer) > 60 Glucose 95 Calcium 9.6 Total Bilirubin 0.8 AST 24 ALT 31 Alkaline Phosphatase 74 Total Protein 6.7 Albumin 4.4 Urine Color Urine Appearance Urine pH Ur Specific [place] Urine Protein Urine Glucose (UA) Urine Ketones Urine Blood Urine Nitrite Ur Leukocyte Esterase Urine WBC (Auto) Urine RBC (Auto) Blood Type A POSITIVE Antibody Screen NEGATIVE 05/06/18 20:45 WBC RBC Hgb Hct MCV MCH MCHC RDW Plt Count Sodium Potassium Chloride Carbon Dioxide Anion Gap BUN Creatinine Est GFR ( Amer) Est GFR (Non-Af Amer) Glucose Calcium Total Bilirubin AST ALT Alkaline Phosphatase Total Protein Albumin Urine Color YELLOW Urine Appearance SLIGHTLY-CLOUDY Urine pH 5.0 Ur Specific [place] 1.023 Urine Protein NEGATIVE Urine Glucose (UA) NEGATIVE Urine Ketones NEGATIVE Urine Blood NEGATIVE Urine Nitrite NEGATIVE Ur Leukocyte Esterase NEGATIVE Urine WBC (Auto) 1 Urine RBC (Auto) 0 Blood Type Antibody Screen Impressions: Abdomen/Pelvis CT 05/06/18 00:00 IMPRESSION: Marked wall thickening in a short segment of ascending colon concerning for colitis. Changes May BE infectious or inflammatory. Possibility of mass is thought less likely. Recommend follow-up to document resolution and clinical correlation Small amount of mesenteric adenopathy which may be reactive Tiny nodular focus in the right retroperitoneum which was present on the previous study and appears stable Assessment & Plan - Diagnosis (1) Colitis Is this a current diagnosis for this admission?: Yes (2) Right lower quadrant abdominal pain Is this a current diagnosis for this admission?: Yes - Time Time Spent: 30 to 50 Minutes - Inpatient Certification Medical Necessity: Need For IV Fluids, Need for IV Antibiotics - Plan Summary Plan Summary: Ct scan showed unremarkable appendix but has thickened ascending colon compatible with colitis. Will hold off appendectomy. Clinically presented with typical acute appendicitis. I discussed the CT scan findings with the radiologist who claims appendix is normal. Had added a po contrast to the CT scan and the appendix was visualized. Called and informed Dr Forrest of the CT scan findings and my cancelling of surgery. Will place patient on IV Cipro and Flagyl. Start Clears if tolerated. Will follow.
[2018-05-06 22:36] LABS: ABSOLUTE BASOPHILS # (AUTO) 0.1 10^3/uL (0.0-0.2); ABSOLUTE LYMPHOCYTES (AUTO) 1.3 10^3/uL (0.5-4.7); ABSOLUTE MONOCYTES (AUTO) 1.1 10^3/uL (0.1-1.4); ABSOLUTE NEUT (AUTO) 10.2 10^3/uL (1.7-8.2); BASOPHILS % (AUTO) 0.4 % (0-2); EOSINOPHILS % (AUTO) 0.3 % (0-6); HEMATOCRIT 42.4 % (37.9-51.0); HEMOGLOBIN 14.3 g/dL (13.5-17.0); LYMPHOCYTES % (AUTO) 10.2 % (13-45); MEAN CORPUSCULAR HEMOGLOBIN 27.2 pg (27.0-33.4); MEAN CORPUSCULAR HGB CONC 33.7 g/dL (32.0-36.0); MEAN CORPUSCULAR VOLUME 81 fl (80-97); MONOCYTES % (AUTO) 8.9 % (3-13); PLATELET COUNT 196 10^3/uL (150-450); RED BLOOD COUNT 5.26 10^6/uL (4.35-5.55); RED CELL DISTRIBUTION WIDTH 14.4 % (11.5-14.0); SEGMENTED NEUTROPHILS % (AUTO) 80.2 % (42-78); TOTAL CELLS COUNTED % (AUTO) 100 %; WHITE BLOOD COUNT 12.7 10^3/uL (4.0-10.5)
[2018-05-06] MEDS ORDERED: CIPROFLOXACIN 400 MG/D5W RTU 200 ML IV SCH (23:00)
[2018-05-06] MEDS ORDERED: ONDANSETRON HCL INJ/PF 4 MG/2 ML SDV ONE (23:11)
[2018-05-06] MEDS: CIPROFLOXACIN 400 MG/D5W RTU 400 MG/200 ML RTUPB IV SCH (23:18)
[2018-05-06] MEDS: ENOXAPARIN SODIUM INJ 40 MG/0.4 ML DISP.SYRIN SUBCUT SCH (23:18)
[2018-05-06] MEDS ORDERED: ONDANSETRON HCL INJ/PF 4 MG/2 ML SDV IV PRN (23:21)
[2018-05-07] MEDS: METRONIDAZOLE 500 MG/NS RTU 500 MG/100 ML RTUPB IV SCH ×4 (01:45→18:17)
[2018-05-07] MEDS: HYDROMORPHONE HCL INJ/PF 2 MG/ML AMPULE IV PRN ×3 (04:47→13:36)
[2018-05-07] MEDS: NORMAL SALINE 1000 ML 1,000 ML IV PRN ×2 (06:01→21:51)
[2018-05-07 07:08] LABS: ALANINE AMINOTRANSFERASE 26 U/L (21-72); ALBUMIN 3.8 g/dL (3.5-5.0); ALKALINE PHOSPHATASE 63 U/L (38-126); ANION GAP 10 (5-19); ASPARTATE AMINO TRANSFERASE 21 U/L (17-59); BILIRUBIN,DIRECT 0.2 mg/dL (0.0-0.4); BILIRUBIN,TOTAL 0.9 mg/dL (0.2-1.3); BLOOD UREA NITROGEN 15 mg/dL (7-20); CALCIUM 8.6 mg/dL (8.4-10.2); CARBON DIOXIDE 25 mmol/L (22-30); CHLORIDE 99 mmol/L (98-107); GLUCOSE 104 mg/dL (75-110); POTASSIUM 4.1 mmol/L (3.6-5.0); SODIUM 133.8 mmol/L (137-145); TOTAL PROTEIN 6.1 g/dL (6.3-8.2)
--- NOTE | 2018-05-07 07:50 | EKG REPORT ---
SEVERITY:- ABNORMAL ECG - SINUS RHYTHM NONSPECIFIC INTRAVENTRICULAR CONDUCTION DELAY : Confirmed by: Kris Trinh MD 07-May-2018 07:49:34
[2018-05-07] MEDS: CIPROFLOXACIN 400 MG/D5W RTU 400 MG/200 ML RTUPB IV SCH ×2 (09:35→21:51)
[2018-05-07] MEDS: ONDANSETRON HCL INJ/PF 4 MG/2 ML SDV IV PRN ×2 (09:35→13:35)
--- NOTE | 2018-05-07 12:51 | Physician Advisory Note ---
Physician Advisor ProgressNote .: [facility], I have reviewed the medical record for this patient. Physician Advisor Statement: Please consider documenting, if you agree: 1. "Acute hyponatremia, suspect due to " Acute appendicitis is typically considered an Obs dx these days w/strong potential going home soon after lap appy, so with this as the initial dx, it sounds like he should have started as Obs on 05/06. However, in this case, unable yet to tolerate po intake, needing IVF @100 still , IV Zofran this AM & frequent IV Dilaudid prn overnight, still w/leukocytosis & acute abd pain w/guarding & grimacing today, now developing acute hyponatremia , ... will certainly need to stay for a 2nd MN, & therefore is appropriate for Inpt status. CK
[2018-05-07] MEDS ORDERED: ALBUTEROL SULFATE HFA (90 MCG/PUFF) 200 PUFF/8.5 GM MDI IH PRN (13:51)
[2018-05-07] MEDS ORDERED: (PENDING PHARMACY ID) (Clonazepam [Klonopin] 0.5 MG) PO PRN (13:51)
[2018-05-07] MEDS ORDERED: PROMETHAZINE HCL INJ 25 MG/1 ML VIAL IV PRN (13:53)
[2018-05-07] MEDS ORDERED: LYCOP PO SCH (14:00)
[2018-05-07] MEDS ORDERED: MULTIVIT MIN PO SCH (14:00)
[2018-05-07] MEDS ORDERED: VITAMIN E 400 MG PO SCH (14:00)
[2018-05-07] MEDS ORDERED: (PENDING PHARMACY ID) (Omega-3 Fatty Acids/Fish Oil [Fish Oil 1,000 Mg Capsule] 2 CAP) PO SCH (14:00)
[2018-05-07] MEDS ORDERED: (PENDING PHARMACY ID) (Bupropion Hcl [Wellbutrin Sr 150 Mg Tablet] 150 MG) PO SCH (14:00)
[2018-05-07] MEDS ORDERED: VIT K PO SCH (14:00)
[2018-05-07] MEDS ORDERED: ATORVASTATIN CALCIUM 40 MG TABLET PO SCH (14:00)
[2018-05-07] MEDS ORDERED: FOLIC PO SCH (14:00)
[2018-05-07] MEDS ORDERED: (PENDING PHARMACY ID) (Cholecalciferol (Vitamin D3) [Vitamin D3 2000 Unit Tablet] 2,000 UN PO SCH (14:00)
[2018-05-07] MEDS ORDERED: [UNRECOGNIZED DRUG - OTHER] PO SCH (14:00)
[2018-05-07] MEDS ORDERED: CLONAZEPAM 1 MG TABLET PO PRN (14:47)
--- NOTE | 2018-05-07 15:43 | PDOC PROGRESS REPORT ---
Subjective Progress Note for:: 05/07/18 Subjective:: nausea with abdominal pains Reason For Visit: RIGHT LOWER QUADRANT ABDOMINAL PAIN Physical Exam Vital Signs: Temp Pulse Resp BP Pulse Ox 97.8 F 79 16 121/58 L 100 05/07/18 15:26 05/07/18 15:26 05/07/18 15:26 05/07/18 15:26 05/07/18 15:26 Intake & Output 05/06/18 05/07/18 05/08/18 06:59 06:59 06:59 Intake Total 1300 100 Balance 1300 100 Weight 90.718 kg Exam: abdomen remains soft with mild tenderness RLQ and suprapubic area Results Laboratory Results: 05/06/18 20:22 05/07/18 06:10 05/06/18 05/06/18 05/06/18 17:08 17:08 20:22 WBC 13.2 H RBC 5.28 Hgb 14.4 Hct 42.2 MCV 80 MCH 27.3 MCHC 34.1 RDW 13.9 Plt Count 214 Seg Neutrophils % Lymphocytes % Monocytes % Eosinophils % Basophils % Absolute Neutrophils Absolute Lymphocytes Absolute Monocytes Absolute Eosinophils Absolute Basophils Sodium 137.3 Potassium 3.9 Chloride 99 Carbon Dioxide 25 Anion Gap 13 BUN 14 Creatinine 0.94 Est GFR ( Amer) > 60 Est GFR (Non-Af Amer) > 60 Glucose 95 Calcium 9.6 Total Bilirubin 0.8 AST 24 ALT 31 Alkaline Phosphatase 74 Total Protein 6.7 Albumin 4.4 Urine Color Urine Appearance Urine pH Ur Specific [place] Urine Protein Urine Glucose (UA) Urine Ketones Urine Blood Urine Nitrite Ur Leukocyte Esterase Urine WBC (Auto) Urine RBC (Auto) Blood Type A POSITIVE Antibody Screen NEGATIVE 05/06/18 05/06/18 05/07/18 20:22 20:45 06:10 WBC 12.7 H RBC 5.26 Hgb 14.3 Hct 42.4 MCV 81 MCH 27.2 MCHC 33.7 RDW 14.4 H Plt Count 196 Seg Neutrophils % 80.2 H Lymphocytes % 10.2 L Monocytes % 8.9 Eosinophils % 0.3 Basophils % 0.4 Absolute Neutrophils 10.2 H Absolute Lymphocytes 1.3 Absolute Monocytes 1.1 Absolute Eosinophils 0.0 Absolute Basophils 0.1 Sodium 133.8 L Potassium 4.1 Chloride 99 Carbon Dioxide 25 Anion Gap 10 BUN 15 Creatinine 0.76 Est GFR ( Amer) > 60 Est GFR (Non-Af Amer) > 60 Glucose 104 Calcium 8.6 Total Bilirubin 0.9 AST 21 ALT 26 Alkaline Phosphatase 63 Total Protein 6.1 L Albumin 3.8 Urine Color YELLOW Urine Appearance SLIGHTLY-CLOUDY Urine pH 5.0 Ur Specific [place] 1.023 Urine Protein NEGATIVE Urine Glucose (UA) NEGATIVE Urine Ketones NEGATIVE Urine Blood NEGATIVE Urine Nitrite NEGATIVE Ur Leukocyte Esterase NEGATIVE Urine WBC (Auto) 1 Urine RBC (Auto) 0 Blood Type Antibody Screen Impressions: Abdomen/Pelvis CT 05/06/18 00:00 IMPRESSION: Marked wall thickening in a short segment of ascending colon concerning for colitis. Changes May BE infectious or inflammatory. Possibility of mass is thought less likely. Recommend follow-up to document resolution and clinical correlation Small amount of mesenteric adenopathy which may be reactive Tiny nodular focus in the right retroperitoneum which was present on the previous study and appears stable Assessment & Plan - Diagnosis (1) Colitis Is this a current diagnosis for this admission?: Yes (2) Right lower quadrant abdominal pain Is this a current diagnosis for this admission?: Yes - Time Time Spent with patient: 15-24 minutes - Inpatient Certification Medical Necessity: Need For IV Fluids, Need for IV Antibiotics, Risk of Complication if Not Cared For in Hospital - Plan Summary Plan Summary: Continue IV antibiotics Try phenergan since he claims zofran not helping OK to start clears when nausea resolved, Recheck labs in am
[2018-05-07] MEDS ORDERED: PROMETHAZINE HCL INJ 25 MG/1 ML VIAL ONE (15:49)
[2018-05-07] MEDS: FLUOXETINE HCL 20 MG CAPSULE PO SCH (16:04)
[2018-05-07] MEDS: VITAMIN E (DL, ACETATE) 400 UNIT CAPSULE PO SCH (16:05)
[2018-05-07] MEDS: CHOLECALCIFEROL (D3) 1,000 UNIT TABLET PO SCH (16:05)
[2018-05-07] MEDS: OMEGA-3 ACID ETHYL ESTERS 1 GM CAPSULE PO SCH (16:21)
[2018-05-07] MEDS: MULTIVITAMIN TABLET PO SCH (16:21)
[2018-05-07] MEDS: LOSARTAN POTASSIUM 50 MG TABLET PO SCH (16:21)
[2018-05-07] MEDS: BUSPIRONE HCL 10 MG TABLET PO SCH (16:21)
[2018-05-07] MEDS: METOPROLOL SUCCINATE 50 MG TAB.SR.24H PO SCH (16:22)
[2018-05-07] MEDS ORDERED: FLECAINIDE ACETATE 100 MG TABLET PO SCH (18:00)
[2018-05-07] MEDS ORDERED: FLECAINIDE ACETATE 75 MG PO SCH (18:00)
[2018-05-07] MEDS: TAMSULOSIN HCL 0.4 MG CAP.SR.24H PO SCH (18:17)
[2018-05-07] MEDS: BUPROPION HCL 100 MG TABLET PO SCH (18:17)
--- NOTE | 2018-05-07 19:54 | PDOC PROGRESS REPORT ---
Subjective Progress Note for:: 05/07/18 Subjective:: Patient was admitted yesterday for the management of suspicious right lower quadrant abdominal pain, CT scan suggests colitis. Patient complained of severe nausea vomiting with pain, the vomiting did not respond to Zofran, this was transitioned to promethazine. Reason For Visit: RIGHT LOWER QUADRANT ABDOMINAL PAIN Physical Exam Vital Signs: Temp Pulse Resp BP Pulse Ox 97.8 F 79 16 121/58 L 100 05/07/18 15:26 05/07/18 15:26 05/07/18 15:26 05/07/18 15:26 05/07/18 15:26 Intake & Output 05/06/18 05/07/18 05/08/18 06:59 06:59 06:59 Intake Total 1300 300 Balance 1300 300 Weight 90.718 kg General appearance: PRESENT: no acute distress Eye exam: PRESENT: PERRLA Respiratory exam: PRESENT: clear to auscultation lexii Cardiovascular exam: PRESENT: +S1, +S2 GI/Abdominal exam: PRESENT: soft Neurological exam: PRESENT: alert, CN II-XII grossly intact Results Laboratory Results: 05/06/18 20:22 05/07/18 06:10 05/06/18 05/06/18 05/06/18 20:22 20:22 20:45 WBC 12.7 H RBC 5.26 Hgb 14.3 Hct 42.4 MCV 81 MCH 27.2 MCHC 33.7 RDW 14.4 H Plt Count 196 Seg Neutrophils % 80.2 H Lymphocytes % 10.2 L Monocytes % 8.9 Eosinophils % 0.3 Basophils % 0.4 Absolute Neutrophils 10.2 H Absolute Lymphocytes 1.3 Absolute Monocytes 1.1 Absolute Eosinophils 0.0 Absolute Basophils 0.1 Sodium Potassium Chloride Carbon Dioxide Anion Gap BUN Creatinine Est GFR ( Amer) Est GFR (Non-Af Amer) Glucose Calcium Total Bilirubin AST ALT Alkaline Phosphatase Total Protein Albumin Urine Color YELLOW Urine Appearance SLIGHTLY-CLOUDY Urine pH 5.0 Ur Specific [place] 1.023 Urine Protein NEGATIVE Urine Glucose (UA) NEGATIVE Urine Ketones NEGATIVE Urine Blood NEGATIVE Urine Nitrite NEGATIVE Ur Leukocyte Esterase NEGATIVE Urine WBC (Auto) 1 Urine RBC (Auto) 0 Blood Type A POSITIVE Antibody Screen NEGATIVE 05/07/18 06:10 WBC RBC Hgb Hct MCV MCH MCHC RDW Plt Count Seg Neutrophils % Lymphocytes % Monocytes % Eosinophils % Basophils % Absolute Neutrophils Absolute Lymphocytes Absolute Monocytes Absolute Eosinophils Absolute Basophils Sodium 133.8 L Potassium 4.1 Chloride 99 Carbon Dioxide 25 Anion Gap 10 BUN 15 Creatinine 0.76 Est GFR ( Amer) > 60 Est GFR (Non-Af Amer) > 60 Glucose 104 Calcium 8.6 Total Bilirubin 0.9 AST 21 ALT 26 Alkaline Phosphatase 63 Total Protein 6.1 L Albumin 3.8 Urine Color Urine Appearance Urine pH Ur Specific [place] Urine Protein Urine Glucose (UA) Urine Ketones Urine Blood Urine Nitrite Ur Leukocyte Esterase Urine WBC (Auto) Urine RBC (Auto) Blood Type Antibody Screen Impressions: Abdomen/Pelvis CT 05/06/18 00:00 IMPRESSION: Marked wall thickening in a short segment of ascending colon concerning for colitis. Changes May BE infectious or inflammatory. Possibility of mass is thought less likely. Recommend follow-up to document resolution and clinical correlation Small amount of mesenteric adenopathy which may be reactive Tiny nodular focus in the right retroperitoneum which was present on the previous study and appears stable Assessment & Plan - Diagnosis (1) Infectious colitis Is this a current diagnosis for this admission?: Yes Plan: Continue with antibiotic (2) Right lower quadrant abdominal pain Is this a current diagnosis for this admission?: Yes
[2018-05-07] MEDS: ENOXAPARIN SODIUM INJ 40 MG/0.4 ML DISP.SYRIN SUBCUT SCH (21:51)
[2018-05-07] MEDS: TEMAZEPAM 15 MG CAPSULE PO SCH (21:52)
[2018-05-07] MEDS: ATORVASTATIN CALCIUM 40 MG TABLET PO SCH (21:52)
[2018-05-07] MEDS ORDERED: (PENDING PHARMACY ID) (Temazepam [Restoril] 30 MG) PO SCH (22:00)
[2018-05-08] MEDS: METRONIDAZOLE 500 MG/NS RTU 500 MG/100 ML RTUPB IV SCH ×5 (01:01→23:27)
[2018-05-08 05:49] LABS: ABSOLUTE EOSINOPHILS # (AUTO) 0.2 10^3/uL (0.0-0.6); ABSOLUTE LYMPHOCYTES (AUTO) 1.1 10^3/uL (0.5-4.7); ABSOLUTE MONOCYTES (AUTO) 0.7 10^3/uL (0.1-1.4); BASOPHILS % (AUTO) 0.3 % (0-2); EOSINOPHILS % (AUTO) 2.4 % (0-6); HEMOGLOBIN 12.8 g/dL (13.5-17.0); LYMPHOCYTES % (AUTO) 15.6 % (13-45); MEAN CORPUSCULAR HEMOGLOBIN 27.2 pg (27.0-33.4); MEAN CORPUSCULAR HGB CONC 33.6 g/dL (32.0-36.0); MEAN CORPUSCULAR VOLUME 81 fl (80-97); MONOCYTES % (AUTO) 10.3 % (3-13); PLATELET COUNT 167 10^3/uL (150-450); RED CELL DISTRIBUTION WIDTH 14.4 % (11.5-14.0); SEGMENTED NEUTROPHILS % (AUTO) 71.4 % (42-78); TOTAL CELLS COUNTED % (AUTO) 100 %; WHITE BLOOD COUNT 6.9 10^3/uL (4.0-10.5)
[2018-05-08] MEDS: LANSOPRAZOLE 30 MG TAB.RAP.DR PO SCH (06:11)
[2018-05-08 06:15] LABS: ANION GAP 10 (5-19); BLOOD UREA NITROGEN 10 mg/dL (7-20); CALCIUM 8.5 mg/dL (8.4-10.2); CARBON DIOXIDE 28 mmol/L (22-30); CHLORIDE 100 mmol/L (98-107); GLUCOSE 91 mg/dL (75-110); POTASSIUM 3.9 mmol/L (3.6-5.0); SODIUM 137.8 mmol/L (137-145)
[2018-05-08] MEDS: LOSARTAN POTASSIUM 50 MG TABLET PO SCH (08:13)
[2018-05-08] MEDS: METOPROLOL SUCCINATE 50 MG TAB.SR.24H PO SCH (08:14)
[2018-05-08] MEDS: CIPROFLOXACIN 400 MG/D5W RTU 400 MG/200 ML RTUPB IV SCH ×2 (09:41→21:24)
[2018-05-08] MEDS: BUSPIRONE HCL 10 MG TABLET PO SCH (09:41)
[2018-05-08] MEDS: OMEGA-3 ACID ETHYL ESTERS 1 GM CAPSULE PO SCH (09:42)
[2018-05-08] MEDS: TAMSULOSIN HCL 0.4 MG CAP.SR.24H PO SCH ×2 (09:42→18:00)
[2018-05-08] MEDS: MULTIVITAMIN TABLET PO SCH (09:43)
[2018-05-08] MEDS: FLUOXETINE HCL 20 MG CAPSULE PO SCH (09:43)
[2018-05-08] MEDS: CHOLECALCIFEROL (D3) 1,000 UNIT TABLET PO SCH (09:44)
[2018-05-08] MEDS: VITAMIN E (DL, ACETATE) 400 UNIT CAPSULE PO SCH (09:44)
[2018-05-08] MEDS: BUPROPION HCL 100 MG TABLET PO SCH ×3 (09:45→18:00)
[2018-05-08] MEDS: NORMAL SALINE 1000 ML 1,000 ML IV PRN (13:14)
[2018-05-08] MEDS: HYDROMORPHONE HCL INJ/PF 2 MG/ML AMPULE IV PRN ×2 (14:23→23:32)
--- NOTE | 2018-05-08 15:18 | PDOC PROGRESS REPORT ---
Subjective Subjective:: This is a 52-year-old male with right sided colitis. The patient is feeling much better today. He still reports abdominal pain, but it is lessening. The patient denies nausea or vomiting today. He has tolerated liquids well. He denies headache, fevers, chills, nausea, vomiting, chest pain, shortness of breath, dizziness, orthostasis, sore throat. Reason For Visit: RIGHT LOWER ABDOMINAL PAIN Physical Exam Vital Signs: Temp Pulse Resp BP Pulse Ox 98.1 F 74 18 113/67 97 05/08/18 11:25 05/08/18 11:25 05/08/18 11:25 05/08/18 11:25 05/08/18 11:25 Intake & Output 05/07/18 05/08/18 05/09/18 06:59 06:59 06:59 Intake Total 1300 2800 1980 Balance 1300 2800 1980 Weight 90.718 kg General appearance: PRESENT: no acute distress Head exam: PRESENT: atraumatic, normocephalic Eye exam: PRESENT: EOMI, PERRLA Mouth exam: PRESENT: moist, neck supple Teeth exam: ABSENT: poor dentation Neck exam: ABSENT: meningismus, tenderness, thyromegaly, tracheal deviation Respiratory exam: PRESENT: unlabored. ABSENT: chest wall tenderness, tachypnea , wheezes Cardiovascular exam: PRESENT: RRR Pulses: PRESENT: normal radial pulses Vascular exam: PRESENT: normal capillary refill. ABSENT: pallor GI/Abdominal exam: PRESENT: soft, tenderness - Mild right sided. ABSENT: distended, firm, guarding, rebound, rigid Rectal exam: PRESENT: deferred Extremities exam: ABSENT: clubbing Musculoskeletal exam: ABSENT: deformity Neurological exam: PRESENT: alert, awake, oriented to person, oriented to place , oriented to time, oriented to situation, CN II-XII grossly intact Psychiatric exam: ABSENT: agitated, anxious, depressed Focused psych exam: ABSENT: delusional Skin exam: ABSENT: cyanosis, erythema, jaundice Results Laboratory Results: 05/08/18 05:27 05/08/18 05:27 05/08/18 05/08/18 05:27 05:27 WBC 6.9 RBC 4.70 Hgb 12.8 L Hct 38.0 MCV 81 MCH 27.2 MCHC 33.6 RDW 14.4 H Plt Count 167 Seg Neutrophils % 71.4 Lymphocytes % 15.6 Monocytes % 10.3 Eosinophils % 2.4 Basophils % 0.3 Absolute Neutrophils 5.0 Absolute Lymphocytes 1.1 Absolute Monocytes 0.7 Absolute Eosinophils 0.2 Absolute Basophils 0.0 Sodium 137.8 Potassium 3.9 Chloride 100 Carbon Dioxide 28 Anion Gap 10 BUN 10 Creatinine 0.87 Est GFR ( Amer) > 60 Est GFR (Non-Af Amer) > 60 Glucose 91 Calcium 8.5 Impressions: Abdomen/Pelvis CT 05/06/18 00:00 IMPRESSION: Marked wall thickening in a short segment of ascending colon concerning for colitis. Changes May BE infectious or inflammatory. Possibility of mass is thought less likely. Recommend follow-up to document resolution and clinical correlation Small amount of mesenteric adenopathy which may be reactive Tiny nodular focus in the right retroperitoneum which was present on the previous study and appears stable Assessment & Plan - Diagnosis (1) Colitis Is this a current diagnosis for this admission?: Yes - Plan Summary Plan Summary: This is a 52-year-old male with colitis of the ascending colon. Currently the etiology of this is uncertain. It could be infectious versus ischemic. I have also encouraged patient to seek a colonoscopy in 6-8 weeks to ensure that there is no malignancy present. The patient is improving with antibiotics. I would continue his IV antibiotics for now. He is tolerating clear liquids. I will advance his diet today. If the patient continues to progress well, anticipate discharge home on oral antibiotics in 24-48 hours.
--- NOTE | 2018-05-08 18:07 | PDOC PROGRESS REPORT ---
Subjective Progress Note for:: 05/08/18 Subjective:: Patient was seen by the bedside, he continues to show improvement, the diet will be advanced to regular diet today Reason For Visit: RIGHT LOWER ABDOMINAL PAIN Physical Exam Vital Signs: Temp Pulse Resp BP Pulse Ox 97.9 F 76 16 127/76 H 95 05/08/18 15:58 05/08/18 15:58 05/08/18 15:58 05/08/18 15:58 05/08/18 15:58 Intake & Output 05/07/18 05/08/18 05/09/18 06:59 06:59 06:59 Intake Total 1300 2800 2300 Balance 1300 2800 2300 Weight 90.718 kg General appearance: PRESENT: no acute distress, well-developed, well-nourished Head exam: PRESENT: atraumatic, normocephalic Eye exam: PRESENT: conjunctiva pink, EOMI, PERRLA Ear exam: PRESENT: normal external ear exam Mouth exam: PRESENT: moist, tongue midline Neck exam: PRESENT: full ROM Respiratory exam: PRESENT: clear to auscultation lexii Cardiovascular exam: PRESENT: RRR, +S1, +S2 Vascular exam: PRESENT: normal capillary refill GI/Abdominal exam: PRESENT: normal bowel sounds, soft Rectal exam: PRESENT: deferred Neurological exam: PRESENT: alert Psychiatric exam: PRESENT: appropriate affect, normal mood Skin exam: PRESENT: dry, intact, warm. ABSENT: cyanosis, rash Results Laboratory Results: 05/08/18 05:27 05/08/18 05:27 05/08/18 05/08/18 05:27 05:27 WBC 6.9 RBC 4.70 Hgb 12.8 L Hct 38.0 MCV 81 MCH 27.2 MCHC 33.6 RDW 14.4 H Plt Count 167 Seg Neutrophils % 71.4 Lymphocytes % 15.6 Monocytes % 10.3 Eosinophils % 2.4 Basophils % 0.3 Absolute Neutrophils 5.0 Absolute Lymphocytes 1.1 Absolute Monocytes 0.7 Absolute Eosinophils 0.2 Absolute Basophils 0.0 Sodium 137.8 Potassium 3.9 Chloride 100 Carbon Dioxide 28 Anion Gap 10 BUN 10 Creatinine 0.87 Est GFR ( Amer) > 60 Est GFR (Non-Af Amer) > 60 Glucose 91 Calcium 8.5 Impressions: Abdomen/Pelvis CT 05/06/18 00:00 IMPRESSION: Marked wall thickening in a short segment of ascending colon concerning for colitis. Changes May BE infectious or inflammatory. Possibility of mass is thought less likely. Recommend follow-up to document resolution and clinical correlation Small amount of mesenteric adenopathy which may be reactive Tiny nodular focus in the right retroperitoneum which was present on the previous study and appears stable Assessment & Plan - Diagnosis (1) Infectious colitis Is this a current diagnosis for this admission?: Yes (2) Right lower quadrant abdominal pain Is this a current diagnosis for this admission?: Yes - Plan Summary Plan Summary: Continue treatment
[2018-05-08] MEDS: TEMAZEPAM 15 MG CAPSULE PO SCH (21:24)
[2018-05-08] MEDS: ENOXAPARIN SODIUM INJ 40 MG/0.4 ML DISP.SYRIN SUBCUT SCH (21:24)
[2018-05-08] MEDS: ATORVASTATIN CALCIUM 40 MG TABLET PO SCH (21:24)
[2018-05-09] MEDS: NORMAL SALINE 1000 ML 1,000 ML IV PRN ×2 (02:15→14:07)
[2018-05-09] MEDS: PROMETHAZINE HCL INJ 25 MG/1 ML VIAL IV PRN (04:16)
[2018-05-09] MEDS ORDERED: METRONIDAZOLE 500 MG/NS RTU 500 MG/100 ML RTUPB IV ONE (06:07)
[2018-05-09] MEDS: LANSOPRAZOLE 30 MG TAB.RAP.DR PO SCH (06:09)
[2018-05-09] MEDS: METRONIDAZOLE 500 MG/NS RTU 500 MG/100 ML RTUPB IV SCH ×4 (06:09→23:38)
[2018-05-09] MEDS: LOSARTAN POTASSIUM 50 MG TABLET PO SCH (08:36)
[2018-05-09] MEDS: METOPROLOL SUCCINATE 50 MG TAB.SR.24H PO SCH (08:37)
[2018-05-09] MEDS: OMEGA-3 ACID ETHYL ESTERS 1 GM CAPSULE PO SCH (10:30)
[2018-05-09] MEDS: MULTIVITAMIN TABLET PO SCH (10:34)
[2018-05-09] MEDS: TAMSULOSIN HCL 0.4 MG CAP.SR.24H PO SCH ×2 (10:34→17:50)
[2018-05-09] MEDS: CIPROFLOXACIN 400 MG/D5W RTU 400 MG/200 ML RTUPB IV SCH ×2 (10:34→21:33)
[2018-05-09] MEDS: BUSPIRONE HCL 10 MG TABLET PO SCH (10:34)
[2018-05-09] MEDS: CHOLECALCIFEROL (D3) 1,000 UNIT TABLET PO SCH (10:39)
[2018-05-09] MEDS: BUPROPION HCL 100 MG TABLET PO SCH ×3 (10:39→17:50)
[2018-05-09] MEDS: VITAMIN E (DL, ACETATE) 400 UNIT CAPSULE PO SCH (10:39)
[2018-05-09] MEDS: FLUOXETINE HCL 20 MG CAPSULE PO SCH (10:40)
[2018-05-09] MEDS: HYDROMORPHONE HCL INJ/PF 2 MG/ML AMPULE IV PRN ×3 (12:09→21:41)
--- NOTE | 2018-05-09 18:29 | PDOC PROGRESS REPORT ---
Subjective Progress Note for:: 05/09/18 Subjective:: feels much better. Tolerated small amount of breakfast Reason For Visit: RIGHT LOWER ABDOMINAL PAIN Physical Exam Vital Signs: Temp Pulse Resp BP Pulse Ox 97.9 F 64 17 127/71 H 98 05/09/18 16:06 05/09/18 16:06 05/09/18 16:06 05/09/18 16:06 05/09/18 16:06 Intake & Output 05/08/18 05/09/18 05/10/18 06:59 06:59 06:59 Intake Total 2800 3940 1600 Balance 2800 3940 1600 Exam: abd is soft with just mild tenderness RLQ Results Laboratory Results: 05/08/18 05:27 05/08/18 05:27 Impressions: Abdomen/Pelvis CT 05/06/18 00:00 IMPRESSION: Marked wall thickening in a short segment of ascending colon concerning for colitis. Changes May BE infectious or inflammatory. Possibility of mass is thought less likely. Recommend follow-up to document resolution and clinical correlation Small amount of mesenteric adenopathy which may be reactive Tiny nodular focus in the right retroperitoneum which was present on the previous study and appears stable Assessment & Plan - Diagnosis (1) Colitis Is this a current diagnosis for this admission?: Yes (2) Right lower quadrant abdominal pain Is this a current diagnosis for this admission?: Yes - Time Time Spent with patient: 15-24 minutes - Plan Summary Plan Summary: Patient unlikely need any surgical intervention. Will sign off.
--- NOTE | 2018-05-09 20:40 | PDOC PROGRESS REPORT ---
Subjective Progress Note for:: 05/09/18 Subjective:: Patient was admitted for the management of right lower quadrant abdominal pain, colitis of the ascending colon Reason For Visit: RIGHT LOWER ABDOMINAL PAIN Physical Exam Vital Signs: Temp Pulse Resp BP Pulse Ox 98.1 F 66 18 132/77 H 97 05/09/18 19:56 05/09/18 19:56 05/09/18 19:56 05/09/18 19:56 05/09/18 19:56 Intake & Output 05/08/18 05/09/18 05/10/18 06:59 06:59 06:59 Intake Total 2800 3940 1600 Balance 2800 3940 1600 General appearance: PRESENT: no acute distress Eye exam: PRESENT: PERRLA Respiratory exam: PRESENT: clear to auscultation lexii Cardiovascular exam: PRESENT: +S1, +S2 GI/Abdominal exam: PRESENT: soft Neurological exam: PRESENT: alert Results Laboratory Results: 05/08/18 05:27 05/08/18 05:27 Impressions: Abdomen/Pelvis CT 05/06/18 00:00 IMPRESSION: Marked wall thickening in a short segment of ascending colon concerning for colitis. Changes May BE infectious or inflammatory. Possibility of mass is thought less likely. Recommend follow-up to document resolution and clinical correlation Small amount of mesenteric adenopathy which may be reactive Tiny nodular focus in the right retroperitoneum which was present on the previous study and appears stable Assessment & Plan - Diagnosis (1) Infectious colitis Is this a current diagnosis for this admission?: Yes (2) Right lower quadrant abdominal pain Is this a current diagnosis for this admission?: Yes - Plan Summary Plan Summary: Continue treatment
[2018-05-09] MEDS: ATORVASTATIN CALCIUM 40 MG TABLET PO SCH (21:33)
[2018-05-09] MEDS: ENOXAPARIN SODIUM INJ 40 MG/0.4 ML DISP.SYRIN SUBCUT SCH (21:33)
[2018-05-09] MEDS: TEMAZEPAM 15 MG CAPSULE PO SCH (21:33)
[2018-05-10] MEDS: HYDROMORPHONE HCL INJ/PF 2 MG/ML AMPULE IV PRN (03:58)
[2018-05-10] MEDS: NORMAL SALINE 1000 ML 1,000 ML IV PRN ×2 (03:59→17:21)
[2018-05-10] MEDS: LANSOPRAZOLE 30 MG TAB.RAP.DR PO SCH (06:04)
[2018-05-10] MEDS: METRONIDAZOLE 500 MG/NS RTU 500 MG/100 ML RTUPB IV SCH ×2 (06:06→12:41)
[2018-05-10] MEDS: PROMETHAZINE HCL INJ 25 MG/1 ML VIAL IV PRN ×3 (07:42→21:29)
[2018-05-10] MEDS: LOSARTAN POTASSIUM 50 MG TABLET PO SCH (08:26)
[2018-05-10] MEDS: METOPROLOL SUCCINATE 50 MG TAB.SR.24H PO SCH (08:27)
[2018-05-10] MEDS: CIPROFLOXACIN 400 MG/D5W RTU 400 MG/200 ML RTUPB IV SCH (10:12)
[2018-05-10] MEDS: FLUOXETINE HCL 20 MG CAPSULE PO SCH (10:13)
[2018-05-10] MEDS: BUSPIRONE HCL 10 MG TABLET PO SCH (10:13)
[2018-05-10] MEDS: CHOLECALCIFEROL (D3) 1,000 UNIT TABLET PO SCH (10:13)
[2018-05-10] MEDS: VITAMIN E (DL, ACETATE) 400 UNIT CAPSULE PO SCH (10:13)
[2018-05-10] MEDS: BUPROPION HCL 100 MG TABLET PO SCH ×3 (10:15→17:20)
[2018-05-10] MEDS: MULTIVITAMIN TABLET PO SCH (10:20)
[2018-05-10] MEDS: TAMSULOSIN HCL 0.4 MG CAP.SR.24H PO SCH ×2 (10:23→17:20)
[2018-05-10] MEDS: OMEGA-3 ACID ETHYL ESTERS 1 GM CAPSULE PO SCH (10:23)
[2018-05-10] MEDS: METRONIDAZOLE 500 MG TABLET PO SCH (17:20)
--- NOTE | 2018-05-10 20:06 | PDOC PROGRESS REPORT ---
Subjective Progress Note for:: 05/10/18 Subjective:: Patient continues to complain of right lower quadrant abdominal pain Reason For Visit: RIGHT LOWER ABDOMINAL PAIN Physical Exam Vital Signs: Temp Pulse Resp BP Pulse Ox 98.2 F 80 16 122/72 95 05/10/18 16:29 05/10/18 16:29 05/10/18 16:29 05/10/18 16:29 05/10/18 16:29 Intake & Output 05/09/18 05/10/18 05/11/18 06:59 06:59 06:59 Intake Total 3940 3200 2113 Balance 3940 3200 2113 General appearance: PRESENT: no acute distress, well-developed, well-nourished Head exam: PRESENT: atraumatic, normocephalic Eye exam: PRESENT: conjunctiva pink, EOMI, PERRLA Ear exam: PRESENT: normal external ear exam Mouth exam: PRESENT: moist, tongue midline Neck exam: PRESENT: full ROM Respiratory exam: PRESENT: clear to auscultation lexii Cardiovascular exam: PRESENT: RRR, +S1, +S2 Pulses: PRESENT: normal dorsalis pedis pul, +2 pedal pulses bilateral Vascular exam: PRESENT: normal capillary refill GI/Abdominal exam: PRESENT: normal bowel sounds, soft, tenderness Rectal exam: PRESENT: deferred Neurological exam: PRESENT: alert, awake, oriented to person, oriented to place , oriented to time, oriented to situation, CN II-XII grossly intact Psychiatric exam: PRESENT: appropriate affect, normal mood Skin exam: PRESENT: dry, intact, warm. ABSENT: cyanosis, rash Results Laboratory Results: 05/08/18 05:27 05/08/18 05:27 Impressions: Abdomen/Pelvis CT 05/06/18 00:00 IMPRESSION: Marked wall thickening in a short segment of ascending colon concerning for colitis. Changes May BE infectious or inflammatory. Possibility of mass is thought less likely. Recommend follow-up to document resolution and clinical correlation Small amount of mesenteric adenopathy which may be reactive Tiny nodular focus in the right retroperitoneum which was present on the previous study and appears stable Assessment & Plan - Diagnosis (1) Infectious colitis Is this a current diagnosis for this admission?: Yes Plan: Continue treatment (2) Right lower quadrant abdominal pain Is this a current diagnosis for this admission?: Yes
[2018-05-10] MEDS: ATORVASTATIN CALCIUM 40 MG TABLET PO SCH (21:29)
[2018-05-10] MEDS: ENOXAPARIN SODIUM INJ 40 MG/0.4 ML DISP.SYRIN SUBCUT SCH (21:29)
[2018-05-10] MEDS: CIPROFLOXACIN HCL 500 MG TABLET PO SCH (21:29)
[2018-05-10] MEDS: TEMAZEPAM 15 MG CAPSULE PO SCH (21:29)
[2018-05-11] MEDS: METRONIDAZOLE 500 MG TABLET PO SCH ×4 (01:11→19:10)
[2018-05-11] MEDS: LANSOPRAZOLE 30 MG TAB.RAP.DR PO SCH (06:12)
[2018-05-11] MEDS: PROMETHAZINE HCL INJ 25 MG/1 ML VIAL IV PRN ×2 (10:00→16:18)
[2018-05-11] MEDS: LOSARTAN POTASSIUM 50 MG TABLET PO SCH (10:10)
[2018-05-11] MEDS: METOPROLOL SUCCINATE 50 MG TAB.SR.24H PO SCH (10:10)
[2018-05-11] MEDS: FLUOXETINE HCL 20 MG CAPSULE PO SCH (10:14)
[2018-05-11] MEDS: VITAMIN E (DL, ACETATE) 400 UNIT CAPSULE PO SCH (10:14)
[2018-05-11] MEDS: OMEGA-3 ACID ETHYL ESTERS 1 GM CAPSULE PO SCH (10:14)
[2018-05-11] MEDS: CHOLECALCIFEROL (D3) 1,000 UNIT TABLET PO SCH (10:14)
[2018-05-11] MEDS: TAMSULOSIN HCL 0.4 MG CAP.SR.24H PO SCH ×2 (10:14→19:10)
[2018-05-11] MEDS: CIPROFLOXACIN HCL 500 MG TABLET PO SCH (10:14)
[2018-05-11] MEDS: BUPROPION HCL 100 MG TABLET PO SCH ×3 (10:14→19:10)
[2018-05-11] MEDS: BUSPIRONE HCL 10 MG TABLET PO SCH (10:14)
[2018-05-11] MEDS: MULTIVITAMIN TABLET PO SCH (10:14)
[2018-05-11] MEDS ORDERED: NORMAL SALINE 1000 ML 1,000 ML IV PRN (15:07)
[2018-05-11 15:35] LABS: ABSOLUTE BASOPHILS # (AUTO) 0.1 10^3/uL (0.0-0.2); ABSOLUTE EOSINOPHILS # (AUTO) 0.2 10^3/uL (0.0-0.6); ABSOLUTE MONOCYTES (AUTO) 1.1 10^3/uL (0.1-1.4); ABSOLUTE NEUT (AUTO) 6.3 10^3/uL (1.7-8.2); BASOPHILS % (AUTO) 0.6 % (0-2); HEMATOCRIT 42.6 % (37.9-51.0); HEMOGLOBIN 14.2 g/dL (13.5-17.0); LYMPHOCYTES % (AUTO) 11.9 % (13-45); MEAN CORPUSCULAR HEMOGLOBIN 27.1 pg (27.0-33.4); MEAN CORPUSCULAR HGB CONC 33.4 g/dL (32.0-36.0); MEAN CORPUSCULAR VOLUME 81 fl (80-97); MONOCYTES % (AUTO) 12.7 % (3-13); PLATELET COUNT 257 10^3/uL (150-450); RED BLOOD COUNT 5.26 10^6/uL (4.35-5.55); RED CELL DISTRIBUTION WIDTH 14.4 % (11.5-14.0); SEGMENTED NEUTROPHILS % (AUTO) 72.8 % (42-78); TOTAL CELLS COUNTED % (AUTO) 100 %; WHITE BLOOD COUNT 8.7 10^3/uL (4.0-10.5)
[2018-05-11 15:48] LABS: ALANINE AMINOTRANSFERASE 46 U/L (21-72); ALBUMIN 4.2 g/dL (3.5-5.0); ALKALINE PHOSPHATASE 60 U/L (38-126); ANION GAP 16 (5-19); ASPARTATE AMINO TRANSFERASE 56 U/L (17-59); BILIRUBIN,DIRECT 0.2 mg/dL (0.0-0.4); BILIRUBIN,TOTAL 0.4 mg/dL (0.2-1.3); BLOOD UREA NITROGEN 10 mg/dL (7-20); CALCIUM 9.4 mg/dL (8.4-10.2); CARBON DIOXIDE 27 mmol/L (22-30); CHLORIDE 100 mmol/L (98-107); GLUCOSE 95 mg/dL (75-110); POTASSIUM 3.7 mmol/L (3.6-5.0); SODIUM 142.8 mmol/L (137-145); TOTAL PROTEIN 6.6 g/dL (6.3-8.2)
[2018-05-11] MEDS: POLYETHYLENE GLYCOL 3350 POWDER 17 GM/1 PACKET PO SCH (16:19)
--- NOTE | 2018-05-11 17:08 | PDOC PROGRESS REPORT ---
Subjective Progress Note for:: 05/11/18 Subjective:: Patient was seen today by the bedside, the plan was for discharge today, he continues to complain of pain in the right lower quadrant of the abdomen, CT scan will be reordered Reason For Visit: RIGHT LOWER ABDOMINAL PAIN Physical Exam Vital Signs: Temp Pulse Resp BP Pulse Ox 98.2 F 82 16 128/81 H 95 05/11/18 08:00 05/11/18 08:00 05/11/18 08:00 05/11/18 08:00 05/11/18 08:00 Intake & Output 05/10/18 05/11/18 05/12/18 06:59 06:59 06:59 Intake Total 3200 2513 Balance 3200 2513 General appearance: PRESENT: no acute distress, well-developed, well-nourished Head exam: PRESENT: atraumatic, normocephalic Eye exam: PRESENT: conjunctiva pink, EOMI, PERRLA Ear exam: PRESENT: normal external ear exam Neck exam: PRESENT: full ROM Respiratory exam: PRESENT: clear to auscultation lexii Cardiovascular exam: PRESENT: RRR Pulses: PRESENT: normal dorsalis pedis pul, +2 pedal pulses bilateral Vascular exam: PRESENT: normal capillary refill GI/Abdominal exam: PRESENT: normal bowel sounds, soft, tenderness Rectal exam: PRESENT: deferred Neurological exam: PRESENT: alert, awake, oriented to person, oriented to place , oriented to time, oriented to situation, CN II-XII grossly intact Psychiatric exam: PRESENT: appropriate affect, normal mood Skin exam: PRESENT: dry, intact, warm Results Laboratory Results: 05/11/18 15:25 05/11/18 15:25 05/11/18 05/11/18 15:25 15:25 WBC 8.7 RBC 5.26 Hgb 14.2 Hct 42.6 MCV 81 MCH 27.1 MCHC 33.4 RDW 14.4 H Plt Count 257 Seg Neutrophils % 72.8 Lymphocytes % 11.9 L Monocytes % 12.7 Eosinophils % 2.0 Basophils % 0.6 Absolute Neutrophils 6.3 Absolute Lymphocytes 1.0 Absolute Monocytes 1.1 Absolute Eosinophils 0.2 Absolute Basophils 0.1 Sodium 142.8 Potassium 3.7 Chloride 100 Carbon Dioxide 27 Anion Gap 16 BUN 10 Creatinine 0.87 Est GFR ( Amer) > 60 Est GFR (Non-Af Amer) > 60 Glucose 95 Calcium 9.4 Total Bilirubin 0.4 AST 56 ALT 46 Alkaline Phosphatase 60 Total Protein 6.6 Albumin 4.2 Impressions: Abdomen/Pelvis CT 05/06/18 00:00 IMPRESSION: Marked wall thickening in a short segment of ascending colon concerning for colitis. Changes May BE infectious or inflammatory. Possibility of mass is thought less likely. Recommend follow-up to document resolution and clinical correlation Small amount of mesenteric adenopathy which may be reactive Tiny nodular focus in the right retroperitoneum which was present on the previous study and appears stable Assessment & Plan - Diagnosis (1) Infectious colitis Is this a current diagnosis for this admission?: Yes (2) Right lower quadrant abdominal pain Is this a current diagnosis for this admission?: Yes Plan: Order CAT scan of the abdomen and pelvis
--- NOTE | 2018-05-11 19:01 | RADIOLOGY REPORT (SQ) ---
EXAM DESCRIPTION: CT ABD/PELVIS WITH IV ORAL COMPLETED DATE/TIME: 05/11/2018 6:44 pm REASON FOR STUDY: persistent RLQ abdominal pain COMPARISON: 05/06/2018 and earlier TECHNIQUE: CT scan of the abdomen and pelvis performed using helical scanning technique with dynamic intravenous contrast injection. Oral contrast was administered. Images reviewed with lung, soft ti ssue, and bone windows. Reconstructed coronal and sagittal MPR images reviewed. Delayed images for ev aluation of the urinary system also acquired. All images stored on PACS. All CT scanners at this facility use dose modulation, iterative reconstruction, and/or weight based d osing when appropriate to reduce radiation dose to as low as reasonably achievable (ALARA). [facility]: Dose Right [facility]: CareDose [facility]: Dose Right [facility]: Teradose 4D [facility]: [employer] Wireless CONTRAST TYPE AND DOSE: contrast/concentration: Isovue 350.00 mg/ml; Total Contrast Delivered: 100.0 ml; Total Saline Delivered: 72.0 ml 100 mL IV of Omnipaque 350- low osmolar. RENAL FUNCTION: BUN 10 creatinine 0.87 RADIATION DOSE: CT Rad equipment meets quality standard of care and radiation dose reduction techniq ues were employed. CTDIvol: 18.4 - 20.6 mGy. DLP: 2173 mGy-cm.. LIMITATIONS: None. FINDINGS: LOWER CHEST: No significant findings. No nodules or infiltrates. LIVER: Normal size. No masses. No dilated ducts. SPLEEN: Normal size. No focal lesions. PANCREAS: No masses. No significant calcifications. No adjacent inflammation or peripancreatic fluid collections. Pancreatic duct not dilated. GALLBLADDER: No identified stones by CT criteria. No inflammatory changes to suggest cholecystitis. ADRENAL GLANDS: No significant masses or asymmetry. RIGHT KIDNEY AND URETER: No solid masses. No significant calcifications. No hydronephrosis or hyd roureter. LEFT KIDNEY AND URETER: No solid masses. No significant calcifications. No hydronephrosis or hydr oureter. AORTA AND VESSELS: No aneurysm. No dissection. Renal arteries, SMA, celiac without stenosis. RETROPERITONEUM: No retroperitoneal adenopathy, hemorrhage or masses. BOWEL AND PERITONEAL CAVITY: No dilated loops of bowel. Longer segment of thickening of the biswas of the ascending colon since 05/06/2018 now involving the entire length of the ascending colon. No int raperitoneal free air appear. No free fluid or peritoneal masses. APPENDIX: Normal. PELVIS: No mass. No free fluid. Normal bladder. ABDOMINAL WALL: No masses. No hernias. BONES: L5-S1 degenerative disc disease. No sinister bone lesion. OTHER: No other significant finding. IMPRESSION: Thickening of the biswas of the ascending colon which now involve the entire length of th e ascending colon. Again, findings are favored to represent infectious or inflammatory colitis. How ever, recommend colonoscopy after resolution to exclude underlying inflammatory neoplasm. TECHNICAL DOCUMENTATION: JOB ID: [id number] Quality ID # [id number]: Final reports with documentation of one or more dose reduction techniques (e.g., Au tomated exposure control, adjustment of the mA and/or kV according to patient size, use of iterative reconstruction technique) 2010 [employer]- All Rights Reserved Reading location - IP/workstation name: [email or web address]
[2018-05-11] MEDS: ATORVASTATIN CALCIUM 40 MG TABLET PO SCH (22:14)
[2018-05-11] MEDS: ENOXAPARIN SODIUM INJ 40 MG/0.4 ML DISP.SYRIN SUBCUT SCH (22:14)
--- NOTE | 2018-05-11 22:20 | PDOC PROGRESS REPORT ---
Subjective Progress Note for:: 05/11/18 Subjective:: abdominal pains and nausea today. Tolerated diet Had 2 reg BM's today Reason For Visit: RIGHT LOWER ABDOMINAL PAIN Physical Exam Vital Signs: Temp Pulse Resp BP Pulse Ox 98.2 F 72 14 138/82 H 97 05/11/18 20:02 05/11/18 20:36 05/11/18 20:02 05/11/18 20:02 05/11/18 20:02 Intake & Output 05/10/18 05/11/18 05/12/18 06:59 06:59 06:59 Intake Total 3200 2513 Balance 3200 2513 Exam: Abdomen is soft with mild RLQ tenderness on deep palpation Results Laboratory Results: 05/11/18 15:25 05/11/18 15:25 05/11/18 05/11/18 15:25 15:25 WBC 8.7 RBC 5.26 Hgb 14.2 Hct 42.6 MCV 81 MCH 27.1 MCHC 33.4 RDW 14.4 H Plt Count 257 Seg Neutrophils % 72.8 Lymphocytes % 11.9 L Monocytes % 12.7 Eosinophils % 2.0 Basophils % 0.6 Absolute Neutrophils 6.3 Absolute Lymphocytes 1.0 Absolute Monocytes 1.1 Absolute Eosinophils 0.2 Absolute Basophils 0.1 Sodium 142.8 Potassium 3.7 Chloride 100 Carbon Dioxide 27 Anion Gap 16 BUN 10 Creatinine 0.87 Est GFR ( Amer) > 60 Est GFR (Non-Af Amer) > 60 Glucose 95 Calcium 9.4 Total Bilirubin 0.4 AST 56 ALT 46 Alkaline Phosphatase 60 Total Protein 6.6 Albumin 4.2 Impressions: Abdomen/Pelvis CT 05/11/18 00:00 IMPRESSION: Thickening of the biswas of the ascending colon which now involve the entire length of the ascending colon. Again, findings are favored to represent infectious or inflammatory colitis. However, recommend colonoscopy after resolution to exclude underlying inflammatory neoplasm. Assessment & Plan - Diagnosis (1) Colitis Is this a current diagnosis for this admission?: Yes (2) Right lower quadrant abdominal pain Is this a current diagnosis for this admission?: Yes - Time Time Spent with patient: 15-24 minutes - Inpatient Certification Medical Necessity: Need for IV Antibiotics - Plan Summary Plan Summary: Resume IV Flagyl Full liquids and put back on soft diet once nausea resolved ASking for something for his nerves. Atkelsi ordered. D/W Dr Anderson and will continue to follow closely.
[2018-05-11] MEDS: TEMAZEPAM 15 MG CAPSULE PO SCH (23:19)
[2018-05-11] MEDS: METRONIDAZOLE 500 MG/NS RTU 500 MG/100 ML RTUPB IV SCH (23:22)
[2018-05-11] MEDS: LORAZEPAM INJ 2 MG/1 ML VIAL IV PRN (23:23)
[2018-05-12] MEDS: PROMETHAZINE HCL INJ 25 MG/1 ML VIAL IV PRN ×3 (00:33→22:23)
[2018-05-12] MEDS: METRONIDAZOLE 500 MG/NS RTU 500 MG/100 ML RTUPB IV SCH ×4 (05:40→23:55)
[2018-05-12] MEDS: LANSOPRAZOLE 30 MG TAB.RAP.DR PO SCH (05:40)
[2018-05-12 07:01] LABS: ABSOLUTE EOSINOPHILS # (AUTO) 0.2 10^3/uL (0.0-0.6); ABSOLUTE LYMPHOCYTES (AUTO) 0.9 10^3/uL (0.5-4.7); ABSOLUTE MONOCYTES (AUTO) 0.8 10^3/uL (0.1-1.4); ABSOLUTE NEUT (AUTO) 5.2 10^3/uL (1.7-8.2); BASOPHILS % (AUTO) 0.6 % (0-2); EOSINOPHILS % (AUTO) 2.2 % (0-6); HEMATOCRIT 39.6 % (37.9-51.0); HEMOGLOBIN 13.6 g/dL (13.5-17.0); LYMPHOCYTES % (AUTO) 12.9 % (13-45); MEAN CORPUSCULAR HEMOGLOBIN 27.6 pg (27.0-33.4); MEAN CORPUSCULAR HGB CONC 34.4 g/dL (32.0-36.0); MEAN CORPUSCULAR VOLUME 80 fl (80-97); MONOCYTES % (AUTO) 11.3 % (3-13); PLATELET COUNT 205 10^3/uL (150-450); RED BLOOD COUNT 4.95 10^6/uL (4.35-5.55); RED CELL DISTRIBUTION WIDTH 14.5 % (11.5-14.0); TOTAL CELLS COUNTED % (AUTO) 100 %; WHITE BLOOD COUNT 7.1 10^3/uL (4.0-10.5)
[2018-05-12 07:25] LABS: ALANINE AMINOTRANSFERASE 47 U/L (21-72); ALBUMIN 3.7 g/dL (3.5-5.0); ALKALINE PHOSPHATASE 64 U/L (38-126); ANION GAP 14 (5-19); ASPARTATE AMINO TRANSFERASE 47 U/L (17-59); BILIRUBIN,DIRECT 0.3 mg/dL (0.0-0.4); BILIRUBIN,TOTAL 0.7 mg/dL (0.2-1.3); BLOOD UREA NITROGEN 10 mg/dL (7-20); CALCIUM 9.1 mg/dL (8.4-10.2); CARBON DIOXIDE 25 mmol/L (22-30); CHLORIDE 102 mmol/L (98-107); GLUCOSE 90 mg/dL (75-110); POTASSIUM 4.2 mmol/L (3.6-5.0); SODIUM 140.7 mmol/L (137-145); TOTAL PROTEIN 5.9 g/dL (6.3-8.2)
[2018-05-12] MEDS: HYDROMORPHONE HCL INJ/PF 2 MG/ML AMPULE IV PRN (07:56)
[2018-05-12] MEDS: METOPROLOL SUCCINATE 50 MG TAB.SR.24H PO SCH (07:59)
[2018-05-12] MEDS: LOSARTAN POTASSIUM 50 MG TABLET PO SCH (07:59)
[2018-05-12] MEDS: VITAMIN E (DL, ACETATE) 400 UNIT CAPSULE PO SCH (10:53)
[2018-05-12] MEDS: BUPROPION HCL 100 MG TABLET PO SCH ×3 (10:53→17:31)
[2018-05-12] MEDS: TAMSULOSIN HCL 0.4 MG CAP.SR.24H PO SCH ×2 (10:54→17:31)
[2018-05-12] MEDS: CHOLECALCIFEROL (D3) 1,000 UNIT TABLET PO SCH (10:54)
[2018-05-12] MEDS: POLYETHYLENE GLYCOL 3350 POWDER 17 GM/1 PACKET PO SCH (10:54)
[2018-05-12] MEDS: OMEGA-3 ACID ETHYL ESTERS 1 GM CAPSULE PO SCH (10:54)
[2018-05-12] MEDS: MULTIVITAMIN TABLET PO SCH (10:54)
[2018-05-12] MEDS: FLUOXETINE HCL 20 MG CAPSULE PO SCH (10:54)
[2018-05-12] MEDS: BUSPIRONE HCL 10 MG TABLET PO SCH (10:54)
[2018-05-12] MEDS ORDERED: HYDROMORPHONE HCL INJ/PF 2 MG/ML AMPULE IV PRN (15:42)
--- NOTE | 2018-05-12 17:59 | PDOC PROGRESS REPORT ---
Subjective Progress Note for:: 05/12/18 Subjective:: Patient was seen by the bedside, yesterday he had a repeat CT scan of the abdomen and pelvis with IV and oral contrast, he demonstrated worsening inflammation now involving the entire length of the ascending colon, initially it was just a segment of the ascending colon clinically patient is better but he is also on Dilaudid 2 mg every 4 hours so the pain medication may be masking the pain of the inflammation but clearly on the CT scan there is objective evidence of worsening of the inflammation despite being on antibiotic for the last many days in the hospital, he has been on Cipro and Flagyl it is probably not infectious colitis, needs to rule out IBD may need colonoscopy will consult GI Reason For Visit: RIGHT LOWER ABDOMINAL PAIN Physical Exam Vital Signs: Temp Pulse Resp BP Pulse Ox 98.1 F 79 16 128/67 H 96 05/12/18 16:00 05/12/18 16:00 05/12/18 16:00 05/12/18 16:00 05/12/18 16:00 Intake & Output 05/11/18 05/12/18 05/13/18 06:59 06:59 06:59 Intake Total 2513 1100 100 Balance 2513 1100 100 General appearance: PRESENT: no acute distress Eye exam: PRESENT: PERRLA Respiratory exam: PRESENT: clear to auscultation lexii Cardiovascular exam: PRESENT: +S1, +S2 GI/Abdominal exam: PRESENT: soft, tenderness Neurological exam: PRESENT: alert, CN II-XII grossly intact Results Laboratory Results: 05/12/18 06:35 05/12/18 06:35 05/12/18 05/12/18 06:35 06:35 WBC 7.1 RBC 4.95 Hgb 13.6 Hct 39.6 MCV 80 MCH 27.6 MCHC 34.4 RDW 14.5 H Plt Count 205 Seg Neutrophils % 73.0 Lymphocytes % 12.9 L Monocytes % 11.3 Eosinophils % 2.2 Basophils % 0.6 Absolute Neutrophils 5.2 Absolute Lymphocytes 0.9 Absolute Monocytes 0.8 Absolute Eosinophils 0.2 Absolute Basophils 0.0 Sodium 140.7 Potassium 4.2 Chloride 102 Carbon Dioxide 25 Anion Gap 14 BUN 10 Creatinine 0.91 Est GFR ( Amer) > 60 Est GFR (Non-Af Amer) > 60 Glucose 90 Calcium 9.1 Total Bilirubin 0.7 AST 47 ALT 47 Alkaline Phosphatase 64 Total Protein 5.9 L Albumin 3.7 Impressions: Abdomen/Pelvis CT 05/11/18 00:00 IMPRESSION: Thickening of the biswas of the ascending colon which now involve the entire length of the ascending colon. Again, findings are favored to represent infectious or inflammatory colitis. However, recommend colonoscopy after resolution to exclude underlying inflammatory neoplasm. Assessment & Plan - Diagnosis (1) Infectious colitis Is this a current diagnosis for this admission?: Yes Plan: Consult GI for colonoscopy (2) Right lower quadrant abdominal pain Is this a current diagnosis for this admission?: Yes
--- NOTE | 2018-05-12 18:51 | PDOC PROGRESS REPORT ---
Subjective Progress Note for:: 05/12/18 Subjective:: still with RLQ pains requiring IV Dilaudid Tolerating liquids well. Reason For Visit: RIGHT LOWER ABDOMINAL PAIN Physical Exam Vital Signs: Temp Pulse Resp BP Pulse Ox 98.1 F 79 16 128/67 H 96 05/12/18 16:00 05/12/18 16:00 05/12/18 16:00 05/12/18 16:00 05/12/18 16:00 Intake & Output 05/11/18 05/12/18 05/13/18 06:59 06:59 06:59 Intake Total 2513 1100 100 Balance 2513 1100 100 Exam: abdomen remains soft with mild RLQ tenderness Results Laboratory Results: 05/12/18 06:35 05/12/18 06:35 05/12/18 05/12/18 06:35 06:35 WBC 7.1 RBC 4.95 Hgb 13.6 Hct 39.6 MCV 80 MCH 27.6 MCHC 34.4 RDW 14.5 H Plt Count 205 Seg Neutrophils % 73.0 Lymphocytes % 12.9 L Monocytes % 11.3 Eosinophils % 2.2 Basophils % 0.6 Absolute Neutrophils 5.2 Absolute Lymphocytes 0.9 Absolute Monocytes 0.8 Absolute Eosinophils 0.2 Absolute Basophils 0.0 Sodium 140.7 Potassium 4.2 Chloride 102 Carbon Dioxide 25 Anion Gap 14 BUN 10 Creatinine 0.91 Est GFR ( Amer) > 60 Est GFR (Non-Af Amer) > 60 Glucose 90 Calcium 9.1 Total Bilirubin 0.7 AST 47 ALT 47 Alkaline Phosphatase 64 Total Protein 5.9 L Albumin 3.7 Impressions: Abdomen/Pelvis CT 05/11/18 00:00 IMPRESSION: Thickening of the biswas of the ascending colon which now involve the entire length of the ascending colon. Again, findings are favored to represent infectious or inflammatory colitis. However, recommend colonoscopy after resolution to exclude underlying inflammatory neoplasm. Assessment & Plan - Diagnosis (1) Colitis Is this a current diagnosis for this admission?: Yes (2) Right lower quadrant abdominal pain Is this a current diagnosis for this admission?: Yes - Time Time Spent with patient: 15-24 minutes - Inpatient Certification Medical Necessity: Need for Pain Control, Need for IV Antibiotics, Risk of Complication if Not Cared For in Hospital - Plan Summary Plan Summary: Clinically looks stable. Remains afebrile with normal WBC. Has BM. Mild nausea. Agree with Dr Anderson to get GI consult and possible colonoscopy
[2018-05-12] MEDS: ACETAMINOPHEN 325 MG TABLET PO PRN (20:59)
[2018-05-12] MEDS: TEMAZEPAM 15 MG CAPSULE PO SCH (21:01)
[2018-05-12] MEDS: ENOXAPARIN SODIUM INJ 40 MG/0.4 ML DISP.SYRIN SUBCUT SCH (21:02)
[2018-05-12] MEDS: ATORVASTATIN CALCIUM 40 MG TABLET PO SCH (21:09)
[2018-05-13] MEDS: LORAZEPAM INJ 2 MG/1 ML VIAL IV PRN
[2018-05-13] MEDS: LANSOPRAZOLE 30 MG TAB.RAP.DR PO SCH (05:38)
[2018-05-13] MEDS: METRONIDAZOLE 500 MG/NS RTU 500 MG/100 ML RTUPB IV SCH ×4 (05:39→23:25)
--- NOTE | 2018-05-13 09:20 | PDOC PROGRESS REPORT ---
Subjective Progress Note for:: 05/13/18 Subjective:: Still having some pain, tolerating full liquid diet. No nausea no vomiting having bowel movements. Reason For Visit: RIGHT LOWER ABDOMINAL PAIN Physical Exam Vital Signs: Temp Pulse Resp BP Pulse Ox 98.4 F 78 18 115/74 98 05/13/18 08:00 05/13/18 08:00 05/13/18 08:00 05/13/18 08:00 05/13/18 08:00 Intake & Output 05/12/18 05/13/18 05/14/18 06:59 06:59 06:59 Intake Total 1100 900 Balance 1100 900 General appearance: PRESENT: no acute distress GI/Abdominal exam: PRESENT: other - Soft, minimally tender right side; no peritoneal signs no rigidity essentially no guarding. Results Laboratory Results: 05/12/18 06:35 05/12/18 06:35 Impressions: Abdomen/Pelvis CT 05/11/18 00:00 IMPRESSION: Thickening of the biswas of the ascending colon which now involve the entire length of the ascending colon. Again, findings are favored to represent infectious or inflammatory colitis. However, recommend colonoscopy after resolution to exclude underlying inflammatory neoplasm. Assessment & Plan - Diagnosis (1) Colitis Is this a current diagnosis for this admission?: Yes Plan: Impression: Overall clinically improved; no clinical signs or symptoms of acute intra-abdominal problem; tolerating a diet and moving bowels; no fever and no white count elevation Recommendations: 1. I reviewed CT scan this hospitalization. Findings are limited conventional wall thickening of the ascending colon. There is no pericolonic inflammation, fluid, abscess, free air etc. 2. Agree with anoxic colonoscopy 3. We will sign off at this point since gastroenterology has been consulted. Please reconsult surgery if indicated.
[2018-05-13] MEDS: LOSARTAN POTASSIUM 50 MG TABLET PO SCH (09:54)
[2018-05-13] MEDS: VITAMIN E (DL, ACETATE) 400 UNIT CAPSULE PO SCH (09:54)
[2018-05-13] MEDS: METOPROLOL SUCCINATE 50 MG TAB.SR.24H PO SCH (09:55)
[2018-05-13] MEDS: POLYETHYLENE GLYCOL 3350 POWDER 17 GM/1 PACKET PO SCH (09:56)
[2018-05-13] MEDS: OMEGA-3 ACID ETHYL ESTERS 1 GM CAPSULE PO SCH (09:56)
[2018-05-13] MEDS: TAMSULOSIN HCL 0.4 MG CAP.SR.24H PO SCH ×2 (09:56→17:21)
[2018-05-13] MEDS: FLUOXETINE HCL 20 MG CAPSULE PO SCH (09:56)
[2018-05-13] MEDS: MULTIVITAMIN TABLET PO SCH (09:56)
[2018-05-13] MEDS: CHOLECALCIFEROL (D3) 1,000 UNIT TABLET PO SCH (09:57)
[2018-05-13] MEDS: BUSPIRONE HCL 10 MG TABLET PO SCH (09:57)
[2018-05-13] MEDS: BUPROPION HCL 100 MG TABLET PO SCH ×3 (09:57→17:21)
[2018-05-13] MEDS: PROMETHAZINE HCL INJ 25 MG/1 ML VIAL IV PRN ×2 (09:58→21:43)
--- NOTE | 2018-05-13 20:37 | CONSULTATION REPORT E ---
Consultation Report NAME: JEROD FRIAS : 1965 AGE: 52Y DATE: 05/13/2018 208 A TO: JERMAN ZENDEJAS M.D. FROM: SREE HARLEY M.D. Requesting Physician HISTORY: A 52-year-old patient admitted through the emergency room with abdominal pain. He started to have pain the same day he presented to the emergency room. The pain gradually got worse. Associated with nausea, but no vomiting. He did have some diarrhea, but no rectal bleeding. Nobody else was sick at home. On admission, he had a CT scan that showed marked thickening in the proximal ascending colon with leukocytosis. There was a suspicion for appendicitis and he was evaluated by the surgeon. He was started on antibiotics on admission. He continued to have some right lower quadrant pain, and a repeat CT scan was performed on 05/10/2018. This showed increase in the length of ascending colon that was involved, with no evidence for abscess. His white count was 13 on admission and had come down to 8.7 on 05/11/2018, and 7.1 on 05/12/2018. He has not had any recent colonoscopies. He has a history of hypertension and atrial fibrillation. Overall, he is doing better. His pain is less, and he is tolerating a clear liquid diet. He has not had a fever. PAST MEDICAL HISTORY: 1. Hypertension. 2. Hypercholesterolemia. 3. Reflux disease. 4. Constipation. 5. Atrial fibrillation. 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 ALLERGIES: TOPAMAX, ELIQUIS. SOCIAL HISTORY: Noncontributory. REVIEW OF SYSTEMS: Noncontributory. PHYSICAL EXAMINATION: GENERAL: The patient is in no distress. VITAL SIGNS: Heart rate 77, blood pressure 109/77. HEENT: No pallor, no jaundice. Oropharynx normal. NECK: No bruit, no JVD. CHEST: No deformity. Lungs clear. HEART: Heart sounds 1 and 2 normal without murmur. ABDOMEN: Soft with some tenderness on deep palpation in the right lower quadrant. Liver and spleen not palpable. Bowel sounds active. NEUROLOGIC: Grossly nonfocal. LABORATORY TESTS: Normal Chem-12 and normal CBC on 05/12/2018. CD4 is negative on 05/10/2018. CURRENT MEDICATIONS: Flagyl IV. ASSESSMENT AND PLAN: COLITIS. The patient has evidence of colitis in the right colon with a differential diagnosis including infectious colitis, ischemic colitis. He is doing better with the current management, and I would suggest continue with the Flagyl for 10 days. He had been using Cipro twice a day for a month prior to presentation for prostatitis. His CD4 is negative on admission, but I will repeat this if he has any more diarrhea. He will need a colonoscopy in the next 4 to 6 weeks to confirm resolution. He is due for a colonoscopy anyway, which we tried to schedule in February of last year. I will see him in the office. DICTATING PHYSICIAN: JERMAN ZENDEJAS M.D. [id number] [id number] ID: [id number] JOB#: [id number] ACCT: [id number] cc:Zackery ENGLISH M.D. >
--- NOTE | 2018-05-13 21:15 | PDOC PROGRESS REPORT ---
Subjective Progress Note for:: 05/13/18 Subjective:: Patient was seen by GI, it was felt that he does not need colonoscopy at this time on this admission and outpatient colonoscopy is recommended. Reason For Visit: RIGHT LOWER ABDOMINAL PAIN Physical Exam Vital Signs: Temp Pulse Resp BP Pulse Ox 98.6 F 77 18 109/77 99 05/13/18 15:21 05/13/18 15:21 05/13/18 15:21 05/13/18 15:21 05/13/18 15:21 Intake & Output 05/12/18 05/13/18 05/14/18 06:59 06:59 06:59 Intake Total 8868 008 2928 Balance 1192 645 3419 General appearance: PRESENT: no acute distress Eye exam: PRESENT: PERRLA Respiratory exam: PRESENT: clear to auscultation lexii Cardiovascular exam: PRESENT: +S1, +S2 GI/Abdominal exam: PRESENT: soft Neurological exam: PRESENT: alert, CN II-XII grossly intact Results Laboratory Results: 05/12/18 06:35 05/12/18 06:35 Impressions: Abdomen/Pelvis CT 05/11/18 00:00 IMPRESSION: Thickening of the biswas of the ascending colon which now involve the entire length of the ascending colon. Again, findings are favored to represent infectious or inflammatory colitis. However, recommend colonoscopy after resolution to exclude underlying inflammatory neoplasm. Assessment & Plan - Diagnosis (1) Infectious colitis Is this a current diagnosis for this admission?: Yes Plan: Patient, continue present treatment (2) Right lower quadrant abdominal pain Is this a current diagnosis for this admission?: Yes
[2018-05-13] MEDS: ATORVASTATIN CALCIUM 40 MG TABLET PO SCH (21:43)
[2018-05-13] MEDS: TEMAZEPAM 15 MG CAPSULE PO SCH (21:43)
[2018-05-13] MEDS: ENOXAPARIN SODIUM INJ 40 MG/0.4 ML DISP.SYRIN SUBCUT SCH (21:44)
[2018-05-13] MEDS: ACETAMINOPHEN 325 MG TABLET PO PRN (21:44)
[2018-05-14] MEDS: METRONIDAZOLE 500 MG/NS RTU 500 MG/100 ML RTUPB IV SCH ×3 (05:37→18:02)
[2018-05-14] MEDS: LANSOPRAZOLE 30 MG TAB.RAP.DR PO SCH (05:37)
[2018-05-14] MEDS: METOPROLOL SUCCINATE 50 MG TAB.SR.24H PO SCH (09:21)
[2018-05-14] MEDS: LOSARTAN POTASSIUM 50 MG TABLET PO SCH (09:21)
[2018-05-14] MEDS: BUSPIRONE HCL 10 MG TABLET PO SCH (09:22)
[2018-05-14] MEDS: BUPROPION HCL 100 MG TABLET PO SCH ×3 (09:22→18:02)
[2018-05-14] MEDS: OMEGA-3 ACID ETHYL ESTERS 1 GM CAPSULE PO SCH (09:23)
[2018-05-14] MEDS: TAMSULOSIN HCL 0.4 MG CAP.SR.24H PO SCH ×2 (09:23→18:02)
[2018-05-14] MEDS: FLUOXETINE HCL 20 MG CAPSULE PO SCH (09:23)
[2018-05-14] MEDS: CHOLECALCIFEROL (D3) 1,000 UNIT TABLET PO SCH (09:23)
[2018-05-14] MEDS: VITAMIN E (DL, ACETATE) 400 UNIT CAPSULE PO SCH (09:23)
[2018-05-14] MEDS: MULTIVITAMIN TABLET PO SCH (09:23)
[2018-05-14] MEDS: POLYETHYLENE GLYCOL 3350 POWDER 17 GM/1 PACKET PO SCH (09:24)
[2018-05-14] MEDS: PROMETHAZINE HCL INJ 25 MG/1 ML VIAL IV PRN ×2 (12:02→18:02)
[2018-05-14] MEDS: LORAZEPAM INJ 2 MG/1 ML VIAL IV PRN (18:16)
--- NOTE | 2018-05-14 21:13 | PDOC PROGRESS REPORT ---
Subjective Progress Note for:: 05/14/18 Subjective:: Patient was seen by the bedside he continues to complain of nausea, anorexia Reason For Visit: RIGHT LOWER ABDOMINAL PAIN Physical Exam Vital Signs: Temp Pulse Resp BP Pulse Ox 98.0 F 74 18 122/69 100 05/14/18 20:13 05/14/18 20:13 05/14/18 20:13 05/14/18 20:13 05/14/18 20:13 Intake & Output 05/13/18 05/14/18 05/15/18 06:59 06:59 06:59 Intake Total 900 1720 1080 Balance 900 1720 1080 Weight 100.2 kg General appearance: PRESENT: no acute distress Eye exam: PRESENT: PERRLA Respiratory exam: PRESENT: clear to auscultation lexii Cardiovascular exam: PRESENT: +S1, +S2 GI/Abdominal exam: PRESENT: soft Neurological exam: PRESENT: alert, CN II-XII grossly intact Results Laboratory Results: 05/12/18 06:35 05/12/18 06:35 Impressions: Abdomen/Pelvis CT 05/11/18 00:00 IMPRESSION: Thickening of the biswas of the ascending colon which now involve the entire length of the ascending colon. Again, findings are favored to represent infectious or inflammatory colitis. However, recommend colonoscopy after resolution to exclude underlying inflammatory neoplasm. Assessment & Plan - Diagnosis (1) Infectious colitis Is this a current diagnosis for this admission?: Yes (2) Right lower quadrant abdominal pain Is this a current diagnosis for this admission?: Yes
[2018-05-14] MEDS: ATORVASTATIN CALCIUM 40 MG TABLET PO SCH (21:46)
[2018-05-14] MEDS: ENOXAPARIN SODIUM INJ 40 MG/0.4 ML DISP.SYRIN SUBCUT SCH (21:54)
[2018-05-15] MEDS: METRONIDAZOLE 500 MG/NS RTU 500 MG/100 ML RTUPB IV SCH ×2 (01:42→06:16)
[2018-05-15] MEDS: PROMETHAZINE HCL INJ 25 MG/1 ML VIAL IV PRN (01:51)
[2018-05-15] MEDS: LANSOPRAZOLE 30 MG TAB.RAP.DR PO SCH (07:44)
[2018-05-15] MEDS: METOPROLOL SUCCINATE 50 MG TAB.SR.24H PO SCH (08:55)
[2018-05-15] MEDS: LOSARTAN POTASSIUM 50 MG TABLET PO SCH (08:56)
[2018-05-15] MEDS: BUPROPION HCL 100 MG TABLET PO SCH ×2 (09:00→14:45)
[2018-05-15] MEDS: OMEGA-3 ACID ETHYL ESTERS 1 GM CAPSULE PO SCH (09:00)
[2018-05-15] MEDS: POLYETHYLENE GLYCOL 3350 POWDER 17 GM/1 PACKET PO SCH (09:00)
[2018-05-15] MEDS: CHOLECALCIFEROL (D3) 1,000 UNIT TABLET PO SCH (09:00)
[2018-05-15] MEDS: TAMSULOSIN HCL 0.4 MG CAP.SR.24H PO SCH (09:00)
[2018-05-15] MEDS: FLUOXETINE HCL 20 MG CAPSULE PO SCH (09:00)
[2018-05-15] MEDS: VITAMIN E (DL, ACETATE) 400 UNIT CAPSULE PO SCH (09:00)
[2018-05-15] MEDS: BUSPIRONE HCL 10 MG TABLET PO SCH (09:00)
[2018-05-15] MEDS: MULTIVITAMIN TABLET PO SCH (09:00)
[2018-05-15] MEDS ORDERED: METRONIDAZOLE 500 MG TABLET PO SCH (12:00)
[2018-05-15 17:04] VITALS: BP 112/52
--- NOTE | 2018-05-15 18:16 | PDOC DISCHARGE SUMMARY ---
General - Admit/Disc Date/PCP Admission Date/Primary Care Provider: 05/06/18 16:10 TACOS YBARRA MD Discharge Date: 05/15/18 - Discharge Diagnosis (1) Infectious colitis Is this a current diagnosis for this admission?: Yes (2) Right lower quadrant abdominal pain Is this a current diagnosis for this admission?: Yes - Additional Information Discharge Activity: Balance Activity w/Rest Prescriptions: Metronidazole [Flagyl 500 mg Tablet] 500 mg PO Q6 #20 tablet Home Medications: Albuterol Sulfate [Proair HFA Inhalation Aerosol 8.5 gm MDI] 1 puff IH Q4HP PRN 05/07/18 Aspirin [Aspirin 325 mg Tablet] 325 mg PO DAILY 05/07/18 Atorvastatin Calcium [Lipitor 40 mg Tablet] 40 mg PO DAILY 05/07/18 Bupropion HCl [Wellbutrin Sr 150 mg Tablet] 150 mg PO BID 05/07/18 Buspirone HCl [Buspar 10 mg Tablet] 10 mg PO DAILY 05/07/18 Cholecalciferol (Vitamin D3) [Vitamin D3 2000 unit Tablet] 2,000 unit PO DAILY 05/07/18 Clonazepam [Klonopin] 0.5 mg PO BIDP PRN 05/07/18 Dexlansoprazole [Dexilant 60 mg Capsule] 60 mg PO QAM 05/07/18 Docusate Sodium [Colace 100 mg Capsule] 100 mg PO BID@1200,1800 05/07/18 Docusate Sodium [Colace 100 mg Capsule] 200 mg PO QAM 05/07/18 Flecainide Acetate 75 mg PO BID 05/07/18 Fluoxetine HCl [Prozac] 40 mg PO DAILY 05/07/18 Lactulose [Cephulac Syrup 20 gm/30 ml Udcup] 20 gm PO DAILY 05/07/18 Losartan Potassium [Cozaar 100 mg Tablet] 100 mg PO QAM 05/07/18 Metoprolol Succinate [Toprol XL 100 mg Tablet] 100 mg PO QAM 05/07/18 Multivit-Min/Folic/Vit K/Lycop [One-A-Day Men's 50 Plus Tablet] 1 tab PO DAILY 05/07/18 [place]-3 Fatty Acids/Fish Oil [Fish Oil 1,000 mg Capsule] 2 cap PO DAILY Tamsulosin HCl [Flomax 0.4 mg Cap.sr] 0.4 mg PO BID 05/07/18 Temazepam [Restoril] 30 mg PO QHS 05/07/18 Vitamin E 400 mg PO DAILY 05/07/18 Metronidazole [Flagyl 500 mg Tablet] 500 mg PO Q6 #20 tablet 05/15/18 History of Present Illness History of Present Illness: JEROD FRIAS is a 52 year old male,He came to the office today for evaluation of acute onset right lower quadrant abdominal pain, there is associated nausea, novomiting no diarrhea no urinary symptoms. In the office he was evaluated on examination there is tenderness in the right lower quadrant, there was point and rebound tenderness at McBurney's point suggesting acute appendicitis. He was admitted directly from the office into the hospital for further evaluation, a CAT scan of the abdomen and pelvis with contrast was obtained and also consultation from surgery was obtained. There is associated leukocytosis.Patient was seen by the surgeon the presentation is very consistent with acute appendicitis, he was taken to the operative room, the results of the CT scan of the abdomen and pelvis came back suggesting that the appendix was unremarkable, the CAT scan demonstrated very marked thickening of a short segment of the ascending colon suspicious for inflammatory or infectious colitis Hospital Course Hospital Course: Patient was admitted for the management of acute colitis, felt to be infectious in nature, empirically treated with antibiotic ciprofloxacin and Flagyl. On admission patient presentation was more consistent with acute appendicitis, a CAT scan of the abdomen and pelvis with contrast demonstrated a normal appendix but there was inflammation of the ascending colon. He was seen by the surgeon , was supposed to undergo emergency appendectomy but when the CT scan of the abdomen and pelvis showed a normal appendix the surgery was canceled. Clinically patient improved but he continues to have pain in the right lower quadrant and also anorexia with nausea, subsequent CT scan of the abdomen and pelvis was done, it demonstrated extension of the inflammatory process affecting the whole length of the ascending colon, I reconsulted surgery and also GI Dr. Herndon both agreed that patient could be discharged home to have outpatient colonoscopy. Physical Exam Vital Signs: Temp Pulse Resp BP Pulse Ox 98.3 F 77 18 112/52 L 99 05/15/18 17:03 05/15/18 17:03 05/15/18 17:03 05/15/18 17:03 05/15/18 17:03 Intake & Output 05/14/18 05/15/18 05/16/18 06:59 06:59 06:59 Intake Total 1720 1280 1560 Balance 1720 1280 1560 Weight 100.2 kg 100 kg General appearance: PRESENT: no acute distress Eye exam: PRESENT: PERRLA Respiratory exam: PRESENT: clear to auscultation lexii Cardiovascular exam: PRESENT: +S1, +S2 GI/Abdominal exam: PRESENT: soft Neurological exam: PRESENT: alert, CN II-XII grossly intact Results Laboratory Results: 05/12/18 06:35 05/12/18 06:35 Impressions: Abdomen/Pelvis CT 05/11/18 00:00 IMPRESSION: Thickening of the biswas of the ascending colon which now involve the entire length of the ascending colon. Again, findings are favored to represent infectious or inflammatory colitis. However, recommend colonoscopy after resolution to exclude underlying inflammatory neoplasm. Qualifiers - * PATIENT BEING DISCHARGED WITH ANY OF THE FOLLOWING DIAGNOSIS: No
== END 2018-05-15 17:20 | disposition home or self-care (01) | DRG 392 ==
LOC: 2N 16:10
PROVIDERS: ADMIT Internal Medicine; ATTEND Internal Medicine
DX: A09 Infectious gastroenteritis and colitis, unspecified (principal); I48.91 Unspecified atrial fibrillation; K59.00 Constipation, unspecified; I10 Essential (primary) hypertension; I25.10 Atherosclerotic heart disease of native coronary artery without angina pectoris; E78.00 Pure hypercholesterolemia, unspecified; K21.9 Gastro-esophageal reflux disease without esophagitis; J45.909 Unspecified asthma, uncomplicated; F32.9 Major depressive disorder, single episode, unspecified; M19.90 Unspecified osteoarthritis, unspecified site; Z79.82 Long term (current) use of aspirin; Z79.899 Other long term (current) drug therapy; Z88.8 Allergy status to other drugs, medicaments and biological substances; Z85.828 Personal history of other malignant neoplasm of skin; Z91.018 Allergy to other foods
CPT/HCPCS: 36415; 74176; 74177; 80048; 80053; 80076; 81001; 85025; 85027; 86850; 86900; 86901; 87493; 93005; 93010; 94660; J0131; J0744; J1170; J1650; J2060; J2250; J2405; J2550; J2704; J3490; J7030

== ENCOUNTER → 2018-08-12 | Outpatient (CLI) | payer MEDICARE, BC | LOC: OD 16:39 | PROVIDERS: ATTEND Urology | DX: N41.9 Inflammatory disease of prostate, unspecified (principal) | CPT/HCPCS: 36415; 84153 ==

== ENCOUNTER → 2018-11-07 | Outpatient (CLI) | payer MEDICARE, BC ==
--- NOTE | 2018-11-07 14:17 | RADIOLOGY REPORT (SQ) ---
EXAM DESCRIPTION: CT SOFT TISSUE NECK WITH COMPLETED DATE/TIME: 11/07/2018 1:43 pm REASON FOR STUDY: R22.1 LOCALIZED SWELLING, MASS AND LUMP, NECK R22.1 LOCALIZED SWELLING, MASS AND LUMP, NECK COMPARISON: CT brain 06/01/2017, 06/28/2015 TECHNIQUE: Post IV contrasted scanning from skull base through lung apices with review of bone, soft tissue and lung windows. Reconstructed coronal and sagittal MPR images reviewed. All images stored on PACS. All CT scanners at this facility use dose modulation, iterative reconstruction, and/or weight based d osing when appropriate to reduce radiation dose to as low as reasonably achievable (ALARA). [facility]: Dose Right [facility]: CareDose [facility]: Dose Right [facility]: Teradose 4D [facility]: [employer] CONTRAST TYPE AND DOSE: contrast/concentration: Isovue 350.00 mg/ml; Total Contrast Delivered: 75.0 ml; Total Saline Delivered: 55.0 ml RENAL FUNCTION: Creatinine 1.1 RADIATION DOSE: 25.3 mGy . LIMITATIONS: None FINDINGS: Patient indicates a palpable abnormality in the right posterior neck soft tissues. A BB w as placed on the skin in the area of concern indicated by the patient. Deep to the BB, there is no d iscrete mass. No bulky adenopathy. Benign-appearing 5 mm lymph node is present with preserved centr al hilar fat of doubtful clinical significance for SKULL BASE: Intact. MAJOR SALIVARY GLANDS: No solid or cystic masses. No inflammatory changes. LYMPHADENOPATHY: No adenopathy. MUCOSAL MASSES OR ASYMMETRY: No mucosal masses or asymmetry. LARYNX/CORDS: No abnormal findings. VASCULAR STRUCTURES: The major vessels are patent. LUNG APICES: Clear. BONES: Cervical fusion with hardware. THYROID: Normal size. No masses. PARANASAL SINUSES: Clear. OTHER: No other significant finding. IMPRESSION: NO SIGNIFICANT FINDING IN THE SOFT TISSUES OF THE NECK. TECHNICAL DOCUMENTATION: JOB ID: [id number] Quality ID # [id number]: Final reports with documentation of one or more dose reduction techniques (e.g., Au tomated exposure control, adjustment of the mA and/or kV according to patient size, use of iterative reconstruction technique) 2010 [email or web address]- All Rights Reserved Reading location - IP/workstation name: [email or web address]
== END ==
LOC: RAD 13:01
PROVIDERS: ATTEND Internal Medicine
DX: R22.1 Localized swelling, mass and lump, neck (principal)
CPT/HCPCS: 70491; 82565

== ENCOUNTER → 2018-11-08 | Outpatient (CLI) | payer MEDICARE, BC | LOC: OD 09:59 | PROVIDERS: ATTEND Otolaryngology | DX: J30.9 Allergic rhinitis, unspecified (principal) | CPT/HCPCS: 36415; 82785; 86003 ==

== ENCOUNTER → 2018-11-13 | Outpatient (CLI) | payer MEDICARE, BC ==
--- NOTE | 2018-11-13 08:29 | RADIOLOGY REPORT (SQ) ---
EXAM DESCRIPTION: CT SINUSES FOR ENT COMPLETED DATE/TIME: 11/13/2018 7:29 am REASON FOR STUDY: POST-NASAL DRIP (R09.82) R09.82 POSTNASAL DRIP COMPARISON: None. TECHNIQUE: Noncontrast scanning through the paranasal sinuses using bone algorithm. Reconstructed MPR images reviewed. All images stored on PACS. Images acquired for image guided surgery. All CT scanners at this facility use dose modulation, iterative reconstruction, and/or weight based d osing when appropriate to reduce radiation dose to as low as reasonably achievable (ALARA). [facility]: Dose Right [facility]: CareDose [facility]: Dose Right [facility]: Teradose 4D [facility]: [email or web address] RADIATION DOSE: mGy. FINDINGS: NASAL PASSAGES: Hypertrophic appearing mucosa. No polyps or masses. OSTEOMEATAL UNITS AND NASOFRONTAL DUCTS: Patent. MAXILLARY SINUSES: Well-pneumatized and clear. Maxillary sinus outlets are patent. ETHMOID SINUSES: Well-pneumatized and clear. SPHENOID SINUSES: Well-pneumatized and clear. FRONTAL SINUSES: Diminutive, clear. MASTOID AIR CELLS: Clear. ORBITS: Normal and symmetrical. NASAL SEPTUM: Slight right deviation. No nasal septal spurs. TEMPOROMANDIBULAR JOINTS: Normal. TURBINATES: No pneumatized turbinates. IMPRESSION: Generally clear sinuses. No nasal mass. Mild nasal septal deviation. TECHNICAL DOCUMENTATION: JOB ID: [id number] Quality ID # [id number]: Final reports with documentation of one or more dose reduction techniques (e.g., Au tomated exposure control, adjustment of the mA and/or kV according to patient size, use of iterative reconstruction technique) 2010 [email or web address]- All Rights Reserved Reading location - IP/workstation name: [email or web address]
== END ==
LOC: RAD 06:56
PROVIDERS: ATTEND Otolaryngology
DX: J34.2 Deviated nasal septum (principal); R09.82 Postnasal drip
CPT/HCPCS: 70486

== ENCOUNTER → 2018-11-25 | Outpatient (CLI) | payer MEDICARE, BC ==
--- NOTE | 2018-11-25 23:26 | EKG REPORT ---
SEVERITY:- ABNORMAL ECG - SINUS RHYTHM NONSPECIFIC INTRAVENTRICULAR CONDUCTION DELAY LOW VOLTAGE IN FRONTAL LEADS : Confirmed by: Demetrice Clifton MD 25-Nov-2018 23:26:12
== END ==
LOC: OD 16:17
PROVIDERS: ATTEND Otolaryngology
DX: I51.9 Heart disease, unspecified (principal)
CPT/HCPCS: 93005; 93010

== ENCOUNTER 2018-11-29 08:52 | Day surgery (SDC) | payer MEDICARE, BC ==
[2018-11-26 09:17] LABS: ABSOLUTE BASOPHILS # (AUTO) 0.1 10^3/uL (0.0-0.2); ABSOLUTE EOSINOPHILS # (AUTO) 0.2 10^3/uL (0.0-0.6); ABSOLUTE LYMPHOCYTES (AUTO) 1.7 10^3/uL (0.5-4.7); ABSOLUTE NEUT (AUTO) 3.4 10^3/uL (1.7-8.2); MEAN CORPUSCULAR VOLUME 80 fl (80-97)
[2018-11-26 09:25] LABS: ABSOLUTE MONOCYTES (AUTO) 0.7 10^3/uL (0.1-1.4); BASOPHILS % (AUTO) 1.1 % (0-2); EOSINOPHILS % (AUTO) 3.7 % (0-6); HEMATOCRIT 44.3 % (37.9-51.0); LYMPHOCYTES % (AUTO) 28.3 % (13-45); MEAN CORPUSCULAR HEMOGLOBIN 27.1 pg (27.0-33.4); MEAN CORPUSCULAR HGB CONC 33.8 g/dL (32.0-36.0); MONOCYTES % (AUTO) 11.1 % (3-13); PLATELET COUNT 218 10^3/uL (150-450); RED BLOOD COUNT 5.52 10^6/uL (4.35-5.55); RED CELL DISTRIBUTION WIDTH 14.6 % (11.5-14.0); SEGMENTED NEUTROPHILS % (AUTO) 55.8 % (42-78); TOTAL CELLS COUNTED % (AUTO) 100 %; WHITE BLOOD COUNT 6.1 10^3/uL (4.0-10.5)
[2018-11-26 09:50] LABS: ANION GAP 10 (5-19); BLOOD UREA NITROGEN 11 mg/dL (7-20); CALCIUM 10.1 mg/dL (8.4-10.2); CARBON DIOXIDE 29 mmol/L (22-30); CHLORIDE 99 mmol/L (98-107); GLUCOSE 99 mg/dL (75-110); POTASSIUM 4.4 mmol/L (3.6-5.0); SODIUM 138.1 mmol/L (137-145)
[~2018-11-29 08:52] MED LIST: LACTATED RINGERS 1000 ML IV PRN; LIDOCAINE 0.5% INJ-PF (5 MG/ML) 50 ML SDV SUBCUT PRN
[2018-11-29] MEDS ORDERED: FAMOTIDINE INJ/PF 20 MG/2 ML SDV IV ONE (09:36)
[2018-11-29] MEDS ORDERED: ALBUTEROL SULFATE 0.083% NEB 2.5 MG/3 ML AMPUL NEB ONE ×2 (09:37→10:15)
[2018-11-29] MEDS ORDERED: MIDAZOLAM 2 MG/2 ML INJ ONE ×2 (10:10→13:22)
[2018-11-29] MEDS ORDERED: RINGERS SOLUTION,LACTATED 1,000 ML IV ONE (10:15)
[2018-11-29] MEDS ORDERED: PHENYLEPHRINE HCL INJ/PF 10 MG/1 ML SDV ONE (10:32)
[2018-11-29] MEDS ORDERED: SUCCINYLCHOLINE CHLORIDE INJ 200 MG/10 ML VIAL ONE (10:32)
[2018-11-29] MEDS ORDERED: DEXAMETHASONE SOD PHOSPHATE INJ 4 MG/1 ML VIAL ONE (10:32)
[2018-11-29] MEDS ORDERED: GLYCOPYRROLATE 1 MG/5 ML VIAL ONE (10:32)
[2018-11-29] MEDS ORDERED: MINERAL OIL (STERILE) 10 ML VIAL ONE (12:52)
[2018-11-29] MEDS ORDERED: OXYMETAZOLINE HCL 0.05% NASAL SPRAY 15 ML BOTTLE ONE ×2 (12:53→21:47)
[2018-11-29] MEDS ORDERED: TOBRAMYCIN SULFATE/DEXAMETH OPH SUSP 2.5 ML ONE (12:53)
[2018-11-29] MEDS ORDERED: LIDOCAINE 1%/EPINEPHRINE INJ 20 ML VIAL ONE (12:53)
[2018-11-29] MEDS ORDERED: BUPIVACAINE HCL 0.5%/EPI 1:200000 INJ 1.8 ML CARTRIDGE ONE ×2 (12:53→15:09)
[2018-11-29] MEDS ORDERED: LIDOCAINE 2% INJ-PF (20 MG/ML) 10 ML AMPUL ONE (13:21)
[2018-11-29] MEDS ORDERED: PROPOFOL INJ 200 MG/20 ML VIAL IV ONE (13:22)
[2018-11-29] MEDS ORDERED: FENTANYL CITRATE INJ/PF 250 MCG/5 ML AMPULE ONE (13:22)
[2018-11-29] MEDS ORDERED: CEFAZOLIN INJ 1 GM VIAL ONE (14:00)
[2018-11-29] MEDS ORDERED: FENTANYL CITRATE INJ/PF 100 MCG/2 ML AMPUL IV PRN ×6 (14:29→17:41)
[2018-11-29] MEDS ORDERED: MORPHINE SULFATE 10 MG/ML INJ ONE (16:08)
[2018-11-29] MEDS ORDERED: BALANCED SALT IRRIG SOLN COMB2 15 ML BOTTLE ONE (16:56)
[2018-11-29] MEDS ORDERED: DIPHENHYDRAMINE HCL 50 MG/ML VIAL IV PRN (17:41)
[2018-11-29] MEDS ORDERED: OXYCODONE-ACETAMINOPHEN 5-325 MG TABLET PO PRN ×3 (17:41→19:38)
[2018-11-29] MEDS ORDERED: MEPERIDINE HCL/PF INJ 25 MG/1 ML DISP.SYRIN IV PRN (17:41)
[2018-11-29] MEDS ORDERED: PROMETHAZINE HCL INJ 25 MG/1 ML VIAL IV PRN ×2 (17:41)
[2018-11-29] MEDS ORDERED: MORPHINE SULFATE 10 MG/ML INJ IV PRN (17:41)
[2018-11-29] MEDS ORDERED: ONDANSETRON HCL INJ/PF 4 MG/2 ML SDV IV PRN (17:41)
[2018-11-29] MEDS ORDERED: EPHEDRINE SULFATE INJ 50 MG/1 ML AMPULE ONE (18:32)
[2018-11-29] MEDS ORDERED: METOCLOPRAMIDE HCL INJ/PF 10 MG/2 ML SDV ONE (18:33)
[2018-11-29] MEDS ORDERED: ONDANSETRON HCL INJ/PF 4 MG/2 ML SDV ONE (18:33)
[2018-11-29] MEDS ORDERED: PROMETHAZINE HCL INJ 25 MG/1 ML VIAL ONE (18:33)
[2018-11-29] MEDS: FENTANYL CITRATE INJ/PF 100 MCG/2 ML AMPUL ONE ×3 (19:00→19:15)
[2018-11-29] MEDS ORDERED: HYDROMORPHONE HCL INJ/PF 2 MG/ML AMPULE ONE (19:37)
[2018-11-29] MEDS ORDERED: ACETAMINOPHEN 1,000 MG/100 ML RTUPB IV ONE (19:41)
[2018-11-29] MEDS: ONDANSETRON 4 MG TAB.RAPDIS PO PRN (23:30)
[2018-11-30] MEDS: ONDANSETRON HCL INJ/PF 4 MG/2 ML SDV IV PRN ×2 (02:33→07:49)
[2018-11-30] MEDS ORDERED: MORPHINE SULFATE 10 MG/ML INJ IV PRN (08:15)
[2018-11-30] MEDS ORDERED: HYDROCODONE/ACETAMINOPHEN 5-325 MG TABLET PO PRN (08:15)
[2018-11-30] MEDS ORDERED: PROMETHAZINE HCL INJ 25 MG/1 ML VIAL IV ONE (09:00)
[2018-11-30] MEDS: ONDANSETRON 4 MG TAB.RAPDIS PO PRN (12:04)
[2018-11-30 13:00] VITALS: BP 130/79
--- NOTE | 2018-12-09 00:04 | OPERATIVE REPORT E ---
Operative Report NAME: JEROD FRIAS : 1965 AGE: 53Y DATE OF SURGERY: 12/08/2018 ROOM: 406 PREOPERATIVE DIAGNOSES: 1. ACUTE RECURRENT SINUSITIS. 2. CHRONIC RHINOSINUSITIS WITHOUT NASAL POLYP DISEASE. 3. NASAL SEPTAL DEVIATION. 4. BILATERAL INFERIOR TURBINATE HYPERTROPHY. 5. BILATERAL MIDDLE TURBINATE HYPERTROPHY. 6. NASAL VALVE COLLAPSE/DEFICIENCY. 7. CHRONIC NASAL DYSPNEA. 8. CHRONIC BILATERAL EUSTACHIAN TUBE DYSFUNCTION. 9. RIGHT POSTERIOR LATERAL/LEVEL 5 NECK NODULE. POSTOPERATIVE DIAGNOSES: 1. ACUTE RECURRENT SINUSITIS. 2. CHRONIC RHINOSINUSITIS WITHOUT NASAL POLYP DISEASE. 3. NASAL SEPTAL DEVIATION. 4. BILATERAL INFERIOR TURBINATE HYPERTROPHY. 5. BILATERAL MIDDLE TURBINATE HYPERTROPHY. 6. NASAL VALVE COLLAPSE/DEFICIENCY. 7. CHRONIC NASAL DYSPNEA. 8. CHRONIC BILATERAL EUSTACHIAN TUBE DYSFUNCTION. 9. RIGHT POSTERIOR LATERAL/LEVEL 5 NECK NODULE. OPERATIONS: Image guidance functional endoscopic sinus surgery via bilateral transnasal rigid surgical endoscopy as follows: 1. Bilateral maxillary antrostomies. 2. Bilateral frontal sinus balloon sinuplasty. 3. Bilateral sphenoid balloon sinuplasty. 4. Repair of nasal vestibular stenosis/collapse/deficiency with use of the Vivaer nasal valve device, bilateral. 5. Bilateral eustachian tube balloon [place] [address] and this unlisted code is to be accompanied by the following listed CPT codes, consisting of CPT code 90861 (pharynx) and listed as bilateral/left and right eustachian tube balloon plasty, and CPT code 01755 for bilateral rigid transnasal surgical endoscopy. 6. Septoplasty. 7. Right lateral neck posterior neck/level 5 subcutaneous nodule excision, measuring approximately 1.5 x 1.5 cm. 8. Bilateral inferior turbinate reduction. 9. Bilateral middle turbinate reduction. SURGEON: JAYMIE POWER D.O. ANESTHESIA: General endotracheal tube. ANESTHESIA STAFF: KARSON Jones. ESTIMATED BLOOD LOSS: 50 mL FLUIDS: 2000 mL COMPLICATIONS: None. DRAINS: None. SPONGE COUNT: Verified. MATERIALS FORWARDED SPECIMEN: Right posterior lateral/level 5 neck nodule appearing consistent with a lipoma type process. FINDINGS: 1. Nasal septal deviation involving bone and cartilage. 2. Bilateral nasal valve deficiency/collapse. 3. Bilateral inferior turbinate hypertrophy and bilateral middle turbinate hypertrophy. 4. There were no sinonasal polyps noted. 5. There was the appearance of chronic nasal congestion with mucosal edema. 6. Bárbara compression with hypertrophy; otherwise the nasopharynx appeared unremarkable. 7. Maxillary crest spur. COMPLICATIONS: None. DRAINS: None. SPONGE COUNT: Verified. NEEDLE COUNT: Verified. INDICATIONS: This is a 53-year-old white male who was seen and evaluated in the [facility] office. The patient had been referred for and he complained of a longstanding history of acute recurrent and chronic rhinosinusitis difficulty over the years, with antibiotics required throughout each year over the years for acute sinusitis episodes. The patient also complained of a history of chronic nasal dyspnea over the years and has desired to undergo nasal and sinus surgery to improve his functional nasal air flow and to move beyond his acute and chronic sinusitis difficulty. The patient is also with history of chronic eustachian tube dysfunction over the years. All of these symptoms/conditions have persisted over the years, despite using multiple different medications to include nasal steroid sprays, which have not been helpful. The patient also more recently complained of a right lateral neck nodule that he can easily palpate and has discomfort from and he has been very concerned about the possibility of cancer, and would like it removed and sent for permanent pathology evaluation. After extensive discussion with the patient, recommendation and plan was made to proceed with a septorhinoplasty to specifically address the nasal valve deficiencies/collapse as well, functional endoscopic sinus surgery, turbinate reductions, eustachian tube balloon plasty and excision of the right lateral posterior/level 5 neck nodule. All of the procedures and their risks and complications were all discussed in detail with the patient, which he voiced an understanding of. The patient desired to proceed with the described plan, and consent was obtained. PROCEDURE: The patient was taken to the main operating room and was placed on the operating room table in the supine position. Appropriate monitors were placed. Using mask and IV access, general anesthesia was induced. The patient was transorally intubated without difficulty. The patient underwent a nasal examination with injection of local anesthetic with epinephrine to establish a nasal block. Two Afrin-soaked neuro patties were passed in each nasal passage. The patient was then prepped and draped in the usual fashion for sinus and nasal surgery. The [employer] Image Guidance Sinus Surgery system was set up and tested appropriately before beginning the case. At this point, the Afrin-soaked neuro patties were removed and the patient underwent a dany-transfixion incision. The mucoperichondrial and mucoperiosteal flaps were elevated without difficulty. The bony cartilaginous junction was identified and divided, and the most deviated portions of septal bone and cartilage were removed. A maxillary crest spur was also removed utilizing the V chisel. There was a greater than 1.5 x 1.5 cm cartilaginous L strut that was preserved. At this point, the turbinate bipolar wand was used to make 2 passes in each inferior turbinate. Next, the anterior portion of each inferior turbinate was entered and the Post was used to perform a submucous dissection followed by use of the turbinate microdebrider system at a setting of 1500 rpm to perform submucous resection on each side. Each inferior turbinate was next outfractured and the anterior redundant mucosa was trimmed and the margins were reapproximated with chromic suture. At this point, the functional endoscopic sinus surgery image guidance was performed with the bilateral rigid transnasal surgical endoscopy and numerous sinus surgical instruments were utilized along with the microdebrider system at a setting of 3000 rpm. The straight Mirtha clamp was used to create controlled fractures in each middle turbinate. Next the anterior margins of the middle turbinates were debulked and they were medialized. A sinus seeker was used to mobilize each uncinate process, followed by use of backbiting instruments to remove the uncinate. Next, along with sinus instruments and the microdebrider, the maxillary antrostomies were performed without difficulty. Once complete, the balloon frontal sinus system was introduced and passed through the frontal sinus recess on each side into the frontal sinus with the balloon inflated to 12 atmospheres at multiple locations on each side. The balloon system was withdrawn and the sphenoid balloon system was introduced and passed through the sphenoid os on each side and inflated to 12 atmospheres on each side. Once complete, the sphenoid balloon system was withdrawn. The eustachian tube balloon system was next introduced and the balloon was passed into each eustachian tube opening and inflated to 12 atmospheres and held in place for 2 minutes on each side. Once complete, the eustachian tube balloon system was withdrawn. At this point, the rhinoplasty portion of the case was carried out to address the bilateral nasal valve collapse/deficiency with use of the [employer] system. There were 3 corrective lesions performed on each side in the area of the nasal valve/scroll region, with outward applied pressure in creating each lesion. Once complete, the nose was thoroughly irrigated and suctioned, and there was adequate hemostasis noted. The previously removed cartilage was placed back within the mucosal flaps to be banked and the hemitransfixion incision was reapproximated with chromic suture. There was a modified Merocel pack placed in the sinonasal distribution and these were secured at the caudal aspect with 4-0 Prolene suture. At this point, the case was transitioned to address the right lateral posterior neck/level 5 nodule. The patient was positioned to address this right neck area. The surgical team changed their sterile gloves and the patient was draped in a sterile fashion to address the right neck. There had been a planned incision made, followed by injection with local anesthetic with epinephrine. At this point, the planned incision site was sharply incised with a #15 blade scalpel down to the level of the subcutaneous tissues. Next, with careful dissection, the nodule was mobilized and removed. Bipolar electrocautery was used to provide adequate hemostasis. Once complete, Monocryl suture was used to close the wound in a layered fashion. There were deep and superficial Monocryl sutures placed to include a continuous running deep dermal suture to reapproximate skin margins. Once complete, the site was cleaned and dried, followed by placement of Mastisol and Steri-Strips. The patient was then returned to the Anesthesia staff and allowed to emerge from general anesthesia. The patient was extubated in the main operating room and was then transported to the post anesthesia recovery unit in stable condition. There were no complications. DICTATING PHYSICIAN: JAYMIE POWER D.O. [id number] PHY#: [id number] ID: [id number] JOB#: [id number] ACCT: [id number] cc:JAYMIE POWER D.O. >
== END 2018-11-30 15:11 | disposition home or self-care (01) ==
LOC: OROUT 08:52 → 4N 22:23 → OROUT 11-30 15:11
PROVIDERS: ATTEND Otolaryngology
DX: R22.1 Localized swelling, mass and lump, neck (principal); J01.91 Acute recurrent sinusitis, unspecified; H91.93 Unspecified hearing loss, bilateral; J32.9 Chronic sinusitis, unspecified; J34.2 Deviated nasal septum; J34.3 Hypertrophy of nasal turbinates; R09.82 Postnasal drip; G47.33 Obstructive sleep apnea (adult) (pediatric); H69.83 Other specified disorders of Eustachian tube, bilateral; K21.0 Gastro-esophageal reflux disease with esophagitis; Z79.01 Long term (current) use of anticoagulants; Z85.828 Personal history of other malignant neoplasm of skin; I10 Essential (primary) hypertension; Z79.899 Other long term (current) drug therapy; J45.909 Unspecified asthma, uncomplicated; Z79.51 Long term (current) use of inhaled steroids; R06.09 Other forms of dyspnea; M95.0 Acquired deformity of nose; R06.00 Dyspnea, unspecified; D21.0 Benign neoplasm of connective and other soft tissue of head, face and neck
CPT/HCPCS: 36415 ×2; 84132; 85025; 80048; 88342 ×2; 88341 ×2; 88305 ×2; 00160; 31256; 31298; 69799; 30520; 30140; 21555; J2250; J0690; J3490 ×6; J1100; A9270 ×4; J3010 ×2; J2765; J2270 ×2; J1170; J2370; J2550 ×2; J0330; J2405 ×2; J2704; S0028; J0131; 160; S0119

== ENCOUNTER 2018-12-27 11:29 | Emergency (ER) | payer MEDICARE, BC ==
--- NOTE | 2018-12-27 12:14 | ER Document Report ---
ED Medical Screen (RME) - General Chief Complaint: Palpitations Stated Complaint: PALPITATIONS Time Seen by Provider: 12/27/18 12:07 Primary Care Provider: SREE HARLEY MD [Primary Care Provider] - Follow up as needed TRAVEL OUTSIDE OF THE [place] IN LAST 30 DAYS: No - HPI Notes: 12/27/18 12:11 Patient is a 53-year-old male with a history of A. fib status post ablation x2 and on aspirin, hypertension, hypercholesterolemia, GERD, and "very small PE after first ablation" who presents complaining of feeling palpitations, fluttering, and intermittent chest pain. Patient states that the fluttering and palpitations began yesterday afternoon and he started feeling some sharp chest pain last night. Patient states he has not had any recurrence of the chest pain, but does continue to feel the fluttering. He is able to eat and drink without difficulty. He is urinating normally. Denies SOLANO, fever, neck pain, URI, CP, SOB, Abd pain, dysuria, back pain, or rash. I have treated and performed a rapid initial assessment of this patient. A comprehensive ED assessment and evaluation of the patient, analysis of test results and completion of medical decision making process will be conducted by additional ED providers. PHYSICAL EXAMINATION: GENERAL: Well-appearing, well-nourished and in no acute distress. A&Ox4. Answers questions appropriately. LUNGS: Breath sounds clear to auscultation bilaterally and equal. No wheezes rales or rhonchi. HEART: Regular rate and rhythm without murmurs, rubs, gallops. Extremities: No cyanosis, clubbing, or edema b/l. Ander negative bilaterally. No lower ext asymmetry. NEUROLOGICAL: Normal speech, normal gait. PSYCH: Normal mood, normal affect. - Related Data Allergies/Adverse Reactions: topiramate [From Topamax] Allergy (Severe, Verified 12/27/18 11:31) shock apixaban [From Eliquis] Allergy (Intermediate, Verified 12/27/18 11:31) Hives dofetilide [From Tikosyn] Allergy (Verified 12/27/18 11:31) Past Medical History - Past Medical History Cardiac Medical History: Reports: Hx Atrial Fibrillation, Hx Hypertension - PO MEDS Denies: Hx Coronary Artery Disease, Hx Heart Attack Pulmonary Medical History: Reports: Hx Asthma - MOD Denies: Hx Bronchitis, Hx COPD, Hx Pneumonia, Hx Tuberculosis Neurological Medical History: Reports: Hx Migraine. Denies: Hx Cerebrovascular Accident, Hx Seizures Renal/ Medical History: Reports: Hx Benign Prostatic Hyperplasia. Denies: Hx Peritoneal Dialysis Malignancy Medical History: Reports Hx Skin Cancer GI Medical History: Reports: Hx Gastroesophageal Reflux Disease. Denies: Hx Hepatitis, Hx Hiatal Hernia, Hx Ulcer Musculoskeltal Medical History: Denies Hx Arthritis, Reports Hx Musculoskeletal Trauma Psychiatric Medical History: Reports: Hx Anxiety, Hx Depression Traumatic Medical History: Reports: Hx Spine Fracture Infectious Medical History: Denies: Hx Hepatitis Past Surgical History: Reports: Hx Cardiac Surgery - ablation x3, Hx Inguinal Hernia, Hx Orthopedic Surgery - cervical neck surgury, Other - cardiac ablation for A Fib x 3. Last one converted to Normal sinus rhythm.. Denies: Hx Open Heart Surgery, Hx Pacemaker - Immunizations Immunizations up to date: Yes Hx Diphtheria, Pertussis, Tetanus Vaccination: Yes Physical Exam - Vital signs Vitals: Temp Pulse Resp BP Pulse Ox 97.4 F 43 L 20 129/88 H 100 12/27/18 11:32 12/27/18 11:32 12/27/18 11:32 12/27/18 11:32 12/27/18 11:32 Course - Vital Signs Vital signs: Temp Pulse Resp BP Pulse Ox 97.4 F 43 L 20 129/88 H 100 12/27/18 11:32 12/27/18 11:32 12/27/18 11:32 12/27/18 11:32 12/27/18 11:32 Doctor's Discharge - Discharge Referrals: SREE HARLEY MD [Primary Care Provider] - Follow up as needed
[2018-12-27 12:45] LABS: ABSOLUTE BASOPHILS # (AUTO) 0.1 10^3/uL (0.0-0.2); ABSOLUTE EOSINOPHILS # (AUTO) 0.2 10^3/uL (0.0-0.6); ABSOLUTE LYMPHOCYTES (AUTO) 1.5 10^3/uL (0.5-4.7); ABSOLUTE MONOCYTES (AUTO) 0.6 10^3/uL (0.1-1.4); ABSOLUTE NEUT (AUTO) 3.3 10^3/uL (1.7-8.2); BASOPHILS % (AUTO) 0.9 % (0-2); EOSINOPHILS % (AUTO) 3.6 % (0-6); HEMATOCRIT 44.2 % (37.9-51.0); HEMOGLOBIN 14.7 g/dL (13.5-17.0); LYMPHOCYTES % (AUTO) 26.4 % (13-45); MEAN CORPUSCULAR HEMOGLOBIN 26.6 pg (27.0-33.4); MEAN CORPUSCULAR HGB CONC 33.3 g/dL (32.0-36.0); MEAN CORPUSCULAR VOLUME 80 fl (80-97); MONOCYTES % (AUTO) 10.8 % (3-13); PLATELET COUNT 261 10^3/uL (150-450); RED BLOOD COUNT 5.52 10^6/uL (4.35-5.55); RED CELL DISTRIBUTION WIDTH 14.6 % (11.5-14.0); SEGMENTED NEUTROPHILS % (AUTO) 58.3 % (42-78); TOTAL CELLS COUNTED % (AUTO) 100 %; WHITE BLOOD COUNT 5.6 10^3/uL (4.0-10.5)
[2018-12-27 13:01] LABS: ALANINE AMINOTRANSFERASE 34 U/L (21-72); ALBUMIN 4.5 g/dL (3.5-5.0); ALKALINE PHOSPHATASE 88 U/L (38-126); ANION GAP 12 (5-19); ASPARTATE AMINO TRANSFERASE 27 U/L (17-59); BILIRUBIN,DIRECT 0.2 mg/dL (0.0-0.4); BILIRUBIN,TOTAL 0.8 mg/dL (0.2-1.3); BLOOD UREA NITROGEN 9 mg/dL (7-20); CALCIUM 9.6 mg/dL (8.4-10.2); CARBON DIOXIDE 23 mmol/L (22-30); CHLORIDE 105 mmol/L (98-107); GLUCOSE 108 mg/dL (75-110); SODIUM 139.9 mmol/L (137-145); TOTAL PROTEIN 7.1 g/dL (6.3-8.2)
--- NOTE | 2018-12-27 13:03 | RADIOLOGY REPORT (SQ) ---
EXAM DESCRIPTION: CHEST 2 VIEWS COMPLETED DATE/TIME: 12/27/2018 12:39 pm REASON FOR STUDY: CP/flutter COMPARISON: AP chest 09/03/2013 EXAM PARAMETERS: NUMBER OF VIEWS: two views TECHNIQUE: Digital Frontal and Lateral radiographic views of the chest acquired. RADIATION DOSE: NA LIMITATIONS: none FINDINGS: LUNGS AND PLEURA: No opacities, masses or pneumothorax. No pleural effusion. MEDIASTINUM AND HILAR STRUCTURES: No masses or contour abnormalities. HEART AND VASCULAR STRUCTURES: Heart normal size. No evidence for failure. BONES: No acute findings. HARDWARE: None in the chest. OTHER: No other significant finding. IMPRESSION: NO ACUTE RADIOGRAPHIC FINDING IN THE CHEST. TECHNICAL DOCUMENTATION: JOB ID: [id number] [employer]- All Rights Reserved Reading location - IP/workstation name: [email or web address]
[2018-12-27 13:11] LABS: NT PRO BNP 1190 pg/mL (5-900)
[2018-12-27 13:15] LABS: TROPONIN I < 0.012 ng/mL
--- NOTE | 2018-12-27 13:36 | EKG REPORT ---
SEVERITY:- ABNORMAL ECG - SINUS RHYTHM FIRST DEGREE AV BLOCK NONSPECIFIC INTRAVENTRICULAR CONDUCTION DELAY LOW VOLTAGE IN FRONTAL LEADS : Confirmed by: Kris Trinh MD 27-Dec-2018 13:36:09
--- NOTE | 2018-12-27 15:51 | ER Document Report ---
ED Cardiac - General Chief Complaint: Palpitations Stated Complaint: PALPITATIONS Time Seen by Provider: 12/27/18 12:07 Primary Care Provider: SREE HARLEY MD [Primary Care Provider] - Follow up as needed Mode of Arrival: Ambulatory Information source: Patient TRAVEL OUTSIDE OF THE [place] IN LAST 30 DAYS: No - HPI Patient complains to provider of: Palpitations - pt. states he has h/o atrial fib s/p ablations x 2 in the past with "fluttering feeling" in his chest for the past day. He denies CP or SOB -- feels better at present. - Related Data Allergies/Adverse Reactions: topiramate [From Topamax] Allergy (Severe, Verified 12/27/18 11:31) shock apixaban [From Eliquis] Allergy (Intermediate, Verified 12/27/18 11:31) Hives dofetilide [From Tikosyn] Allergy (Verified 12/27/18 11:31) Past Medical History - General Information source: Patient - Social History Smoking Status: Never Smoker Frequency of alcohol use: None Drug Abuse: None Family History: Reviewed & Not Pertinent Patient has suicidal ideation: No Patient has homicidal ideation: No - Past Medical History Cardiac Medical History: Reports: Hx Atrial Fibrillation, Hx Hypercholesterolemia, Hx Hypertension - PO MEDS Denies: Hx Coronary Artery Disease, Hx Heart Attack Pulmonary Medical History: Reports: Hx Asthma - MOD Denies: Hx Bronchitis, Hx COPD, Hx Pneumonia, Hx Tuberculosis Neurological Medical History: Reports: Hx Migraine. Denies: Hx Cerebrovascular Accident, Hx Seizures Renal/ Medical History: Reports: Hx Benign Prostatic Hyperplasia. Denies: Hx Peritoneal Dialysis Malignancy Medical History: Reports Hx Skin Cancer GI Medical History: Reports: Hx Gastroesophageal Reflux Disease. Denies: Hx Hepatitis, Hx Hiatal Hernia, Hx Ulcer Musculoskeletal Medical History: Denies Hx Arthritis, Reports Hx Musculoskeletal Trauma Psychiatric Medical History: Reports: Hx Anxiety, Hx Depression Traumatic Medical History: Reports: Hx Spine Fracture Infectious Medical History: Denies: Hx Hepatitis Past Surgical History: Reports: Hx Cardiac Surgery - ablation x3, Hx Inguinal Hernia, Hx Orthopedic Surgery - cervical neck surgury, Other - cardiac ablation for A Fib x 3. Last one converted to Normal sinus rhythm.. Denies: Hx Open Heart Surgery, Hx Pacemaker - Immunizations Immunizations up to date: Yes Hx Diphtheria, Pertussis, Tetanus Vaccination: Yes Hx Pneumococcal Vaccination: 06/11/03 Review of Systems - Review of Systems Constitutional: No symptoms reported EENT: No symptoms reported Cardiovascular: See HPI, Palpitations Respiratory: No symptoms reported Gastrointestinal: No symptoms reported -: Yes All other systems reviewed and negative Physical Exam - Vital signs Vitals: Temp Pulse Resp BP Pulse Ox 97.4 F 43 L 20 129/88 H 100 12/27/18 11:32 12/27/18 11:32 12/27/18 11:32 12/27/18 11:32 12/27/18 11:32 - General General appearance: Appears well In distress: None - HEENT Mouth/Lips: Normal Mucous membranes: Normal Pharynx: Normal Neck: Normal - Respiratory Respiratory status: No respiratory distress Breath sounds: Normal - Cardiovascular Rhythm: Regular Heart sounds: Normal auscultation Murmur: No - Abdominal Inspection: Normal Tenderness: Nontender - Extremities General upper extremity: Normal inspection General lower extremity: Normal inspection - Neurological Neuro grossly intact: Yes Cognition: Normal Orientation: AAOx4 Course - Re-evaluation Re-evalutation: 12/27/18 16:21 Pt's exam is unchanged from priors -- he has no CP or SOB. I will speak to his information systems audit manager in [place] to see if anything else needs to be done today. - Vital Signs Vital signs: Temp Pulse Resp BP Pulse Ox 97.4 F 43 L 20 129/88 H 97 12/27/18 11:32 12/27/18 11:32 12/27/18 11:32 12/27/18 11:32 12/27/18 16:07 - Laboratory Result Diagrams: 12/27/18 12:25 12/27/18 12:25 Laboratory results interpreted by me: 12/27/18 12/27/18 12:25 12:25 MCH 26.6 L RDW 14.6 H NT-Pro-B Natriuret Pep 1190 H - Diagnostic Test Radiology reviewed: Reports reviewed - cxr- neg - EKG Interpretation by Me EKG shows normal: Sinus rhythm Rate: Normal Rhythm: NSR - nsr with 1st degree av block and non-specific st-t changes and no acute change - Consults soraya Davis (Pt's information systems audit manager in [place]) Time consulted: 16:24 Consulted provider: other - ok to d/c -- event monitor will be sent to pt. Discharge - Discharge Clinical Impression: Palpitations Condition: Stable Disposition: HOME, SELF-CARE Instructions: Palpitations (Irregular or Rapid Heartrate) ([facility]) Additional Instructions: rest, continue current meds, return if worse Referrals: SREE HARLEY MD [Primary Care Provider] - Follow up as needed
[2018-12-27 18:26] VITALS: BP 114/90
== END 2018-12-27 17:20 | disposition home or self-care (01) ==
LOC: ER 11:29
DX: R00.2 Palpitations (principal); I44.0 Atrioventricular block, first degree; I10 Essential (primary) hypertension; J45.909 Unspecified asthma, uncomplicated; Z86.79 Personal history of other diseases of the circulatory system; Z88.6 Allergy status to analgesic agent; Z88.8 Allergy status to other drugs, medicaments and biological substances
CPT/HCPCS: 36415; 71046; 80053; 83735; 83880; 84443; 84484; 85025; 93005; 93010; 99285

== ENCOUNTER → 2019-01-06 | Outpatient (CLI) | payer MEDICARE, BC | LOC: OD 15:53 | PROVIDERS: ATTEND Otolaryngology | DX: Z53.9 Procedure and treatment not carried out, unspecified reason (principal) ==

== ENCOUNTER 2019-07-18 07:52 | Outpatient (CLI) | payer MEDICARE, BC ==
[~2019-07-18 07:52] MED LIST changes: +FERRIC CARBOXYMALTOSE 750 MG in NORMAL SALINE 250 ML IV PRN; -LACTATED RINGERS 1000 ML IV PRN; -LIDOCAINE 0.5% INJ-PF (5 MG/ML) 50 ML SDV SUBCUT PRN
[2019-07-18 08:21] VITALS: BP 140/80
== END 2019-07-18 09:40 | disposition home or self-care (01) ==
LOC: II 07:52 → 5TH 08:00 → II 09:40
PROVIDERS: ATTEND Internal Medicine
DX: E61.1 Iron deficiency (principal); K90.0 Celiac disease
CPT/HCPCS: 96365; J7050; J1439; 96374

== ENCOUNTER 2019-07-25 08:30 | Outpatient (CLI) | payer MEDICARE, BC ==
[2019-07-25 08:39] VITALS: BP 137/84
== END 2019-07-25 09:20 | disposition home or self-care (01) ==
LOC: II 08:30 → 5TH 08:41 → II 09:20
PROVIDERS: ATTEND Internal Medicine
DX: E61.1 Iron deficiency (principal); K90.0 Celiac disease
CPT/HCPCS: 96374; J7050; J1439; 96365

== ENCOUNTER 2020-05-30 16:55 | Emergency (ER) | payer MEDICARE, BC ==
[2020-05-30] MEDS ORDERED: HYDROCODONE/ACETAMINOPHEN 5-325 MG TABLET PO ONE (17:07)
--- NOTE | 2020-05-30 17:09 | ER Document Report ---
HPI - HPI Patient complains to provider of: Right ankle injury Time Seen by Provider: 05/30/20 17:02 Onset: Just prior to arrival Onset/Duration: Sudden Quality of pain: Achy Pain Level: 5 Context: Patient states that he jumped off of a porch, slipped in mud and rolled his right ankle. Patient with swelling to the lateral right ankle. Patient denies any other injury. Associated Symptoms: Other - Right ankle pain Exacerbated by: Standing, Movement, Walking Relieved by: Denies Similar symptoms previously: No Recently seen / treated by doctor: No - ROS ROS below otherwise negative: Yes Systems Reviewed and Negative: Yes All other systems reviewed and negative - GASTROINTESTINAL Gastrointestinal: DENIES: Nausea - MUSCULOSKELETAL Musculoskeletal: REPORTS: Extremity pain, Swelling. DENIES: Back Pain - DERM Skin Color: Normal Skin Problems: None Past Medical History - General Information source: Patient - Social History Smoking Status: Never Smoker Frequency of alcohol use: None Drug Abuse: None Occupation: Retired Lives with: Spouse/Significant other Family History: Reviewed & Not Pertinent - Past Medical History Cardiac Medical History: Reports: Hx Atrial Fibrillation, Hx Hypercholesterolemia, Hx Hypertension - PO MEDS Pulmonary Medical History: Reports: Hx Asthma - MOD Neurological Medical History: Reports: Hx Migraine. Denies: Hx Cerebrovascular Accident, Hx Seizures Renal/ Medical History: Reports: Hx Benign Prostatic Hyperplasia. Denies: Hx Peritoneal Dialysis Malignancy Medical History: Reports Hx Skin Cancer GI Medical History: Reports: Hx Gastroesophageal Reflux Disease Musculoskeletal Medical History: Denies Hx Arthritis, Reports Hx Musculoskeletal Trauma Psychiatric Medical History: Reports: Hx Anxiety, Hx Depression Traumatic Medical History: Reports: Hx Spine Fracture Infectious Medical History: Denies: Hx Hepatitis Past Surgical History: Reports: Hx Cardiac Surgery - ablation x3, Hx Inguinal Hernia, Hx Orthopedic Surgery - cervical neck surgury, Other - cardiac ablation for A Fib x 3. Last one converted to Normal sinus rhythm. - Immunizations Immunizations up to date: Yes Hx Diphtheria, Pertussis, Tetanus Vaccination: Yes Hx Pneumococcal Vaccination: 06/11/03 Vertical Provider Document - CONSTITUTIONAL Agree With Documented VS: Yes Exam Limitations: No Limitations General Appearance: WD/WN, No Apparent Distress - INFECTION CONTROL TRAVEL OUTSIDE OF THE [place] IN LAST 30 DAYS: No - HEENT HEENT: Atraumatic, Normocephalic - NECK Neck: Normal Inspection - RESPIRATORY Respiratory: No Respiratory Distress - CARDIOVASCULAR Cardiovascular: Regular Rate Pulses: Normal: Dorsalis pedis - MUSCULOSKELETAL/EXTREMETIES Musculoskeletal/Extremeties: MAEW, Tender - Right ankle tenderness over lateral malleolar area with 3+ edema, Edema. negative: Eccymosis - NEURO Level of Consciousness: Awake, Alert, Appropriate Motor/Sensory: No Motor Deficit - DERM Integumentary: Warm, Dry, No Rash Course - Vital Signs Vital signs: Temp Pulse Resp BP Pulse Ox 98.4 F 76 20 112/82 99 05/30/20 17:01 05/30/20 17:01 05/30/20 17:01 05/30/20 17:01 05/30/20 17:01 - Laboratory Results Critical Laboratory Results Reviewed: No Critical Results - Radiology Results Critical Radiology Results Reviewed: No Critical Results Procedures - Immobilization Right Ankle Pre-Proc Neuro Vasc Exam: Normal Immobilizer type: Ankle stirrup Performed by: PCT Post-Proc Neuro Vasc Exam: Normal Alignment checked and good: Yes Discharge - Discharge Clinical Impression: Right ankle sprain Qualifiers: Encounter type: initial encounter Involved ligament of ankle: unspecified ligament Qualified Code(s): S93.401A - Sprain of unspecified ligament of right ankle, initial encounter Condition: Stable Disposition: HOME, SELF-CARE Instructions: Ankle Stirrup Splint ([facility]), Use of Crutches ([facility]), Ice & Elevation ([facility]), Oral Narcotic Medication ([facility]), Sprained Ankle ([facility]) Additional Instructions: Return immediately for any new or worsening symptoms Followup with your primary care provider, call tomorrow to make a followup appointment Weightbearing as tolerated Follow up with orthopedics for any persistent pain or problems Referrals: JAYMIE POWER DO [ASSOCIATE] - Follow up as needed [facility] [Provider Group] - Follow up as needed VENKAT CHAVIRA MD [ACTIVE STAFF] - Follow up as needed
[2020-05-30] MEDS ORDERED: ONDANSETRON 4 MG TAB.RAPDIS PO ONE (17:19)
--- NOTE | 2020-05-30 18:17 | RADIOLOGY REPORT (SQ) ---
EXAM DESCRIPTION: ANKLE RIGHT COMPLETE IMAGES COMPLETED DATE/TIME: 05/30/2020 5:32 pm REASON FOR STUDY: r ankle injury, slipped in mud COMPARISON: None. NUMBER OF VIEWS: Three views. TECHNIQUE: AP, lateral, and oblique radiographic images acquired of the right ankle. LIMITATIONS: None. FINDINGS: MINERALIZATION: Normal. BONES: No acute fracture or dislocation. Plantar calcaneal spur. No worrisome bone lesions. JOINTS: No effusions. SOFT TISSUES: Lateral soft tissue swelling. No foreign body. OTHER: No other significant finding. IMPRESSION: SOFT TISSUE SWELLING. NO ACUTE FRACTURE OR OTHER BONY FINDINGS. TECHNICAL DOCUMENTATION: JOB ID: [id number] 2010 [employer]- All Rights Reserved Reading location - IP/workstation name: [email or web address]
[2020-05-30] MEDS ORDERED: HYDROCODONE/ACETAMINOPHEN 5-325 MG (6 TAB/ER DISP) PO PRN (18:34)
[2020-05-30 19:15] VITALS: BP 119/84
== END 2020-05-30 19:01 | disposition home or self-care (01) ==
LOC: ER 16:55
DX: S93.401A Sprain of unspecified ligament of right ankle, initial encounter (principal); M25.571 Pain in right ankle and joints of right foot; M79.89 Other specified soft tissue disorders; W01.0XXA Fall on same level from slipping, tripping and stumbling without subsequent striking against object, initial encounter; I48.91 Unspecified atrial fibrillation; I10 Essential (primary) hypertension; J45.909 Unspecified asthma, uncomplicated
CPT/HCPCS: 99284; 73610; 29515; A9270 ×3; S0119